=== PATIENT | female | born 1965 | race Caucasian/White ===

== ENCOUNTER 2020-03-24 11:02 | Emergency (ER) | payer MEDICAID, SELFPAY ==
[2020-03-24] VITALS (7 sets, daily range): BP systolic 98–167; BP diastolic 74–109; PULSE 70–99; RESP 12–22; TEMP 36.9; O2SAT 97–100
--- NOTE | ~2020-03-24 | CT_ITS ---
EXAMINATION: CT abdomen pelvis w con EXAM DATE: 03/24/2020 14:46 INDICATION: Epigastric abdominal pain radiating to back. TECHNIQUE: Spiral CT of the abdomen and pelvis was performed following intravenous injection of 100 m L Omnipaque 350. Axial, coronal and sagittal images were reviewed. The dose-length product (DLP) fo r this examination was 251.72 mGy-cm. The exposure was tailored according to patient size (auto mA e xposure control), and iterative reconstruction (ASIR) was used as additional dose reduction technique . There is no prior study for comparison. FINDINGS: The liver, spleen, adrenal glands and pancreas are unremarkable. Gallbladder is unremarkab le. No biliary obstruction. Portal and splenic veins are patent. There are lobular renal contours b ilaterally. Kidneys enhance symmetrically. There is no hydronephrosis. The uterus is unremarkable. Right ovary has a dominant follicle. The bladder is unremarkable. There is no retroperitoneal or p elvic lymphadenopathy. The appendix is normal. There are surgical changes from intact gastric bypass surgery. Short segment small bowel dilation at a small bowel anastomosis site. No small bowel obstruction. There is expecte d amount of colonic stool. No free intraperitoneal gas. The heart is normal in size. There are n o pericardial or pleural effusions. The lung bases are unremarkable. Moderate lower lumbar disc dis ease. IMPRESSION: 1. No acute intra-abdominal findings. 2. Gastric bypass with short segment small bowel dilation at anastomosis site. No obstruction. Reviewed, dictated and finalized at location A. DESK ANALYST
--- NOTE | ~2020-03-24 | XR_ITS ---
EXAMINATION: XR chest 2V EXAM DATE: 03/24/2020 11:55 INDICATION: Epigastric pain and shortness of breath. TECHNIQUE: Frontal and lateral projections of the chest obtained and reviewed. There is no prior fish dy for comparison. FINDINGS: The lungs are clear. There are no pleural effusions. The cardiomediastinal silhouette is within normal limits. There is no pneumothorax suspected. The bones and soft tissues are unremarkab le. IMPRESSION: Normal chest x-ray exam. Reviewed, dictated and finalized at location A. ET MAKER IMPRESSION: Normal chest x-ray exam.
--- NOTE | 2020-03-24 11:18 | ECG_ITS ---
Measurements Intervals [place] Rate: 83 P: 58 MO: 154 QRS: 42 QRSD: 89 T: 48 QT: 348 QTc: 411 Interpretive Statements SINUS RHYTHM NORMAL ECG Electronically Signed On 03-24-2020 11:33:46 DISTRIBUTION SUPERINTENDENT by Hiren Escalante D.O.
[2020-03-24 11:35] LABS: Basophils Percent Auto 0.3 % (0.2-1.2); Eosinophils Percent Auto 0.5 % (0-4.4); Hematocrit 36.9 % (37.0-47.0); Hemoglobin 12.5 g/dL (12.0-15.0); Immature Granulocyte Absolute 0.02 K/mm3 (0.00-0.031); Immature Granulocyte Percent A 0.3 % (0-0.5); Lymphocytes Percent Auto 25.7 % (18.3-44.2); Mean Corpuscular HGB Conc 33.9 g/dl (32-36); Mean Corpuscular Hemoglobin 28.9 pg (26-34); Mean Corpuscular Volume 85.2 fl (80-100); Mean Platelet Volume 10.8 fl (7.4-10.4); Monocytes Absolute Auto 0.5 K/mm3 (0.1-0.6); Monocytes Percent Auto 7.2 % (2.6-8.5); Neutrophils Absolute Auto 4.9 K/mm3 (1.3-6.7); Platelet Count Result 190 k/mm3 (150-375); Red Blood Count 4.33 M/mm3 (4.2-5.4); Red Cell Distribution Width 13.5 % (11.5-14.5); White Blood Count 7.4 K/mm3 (4.5-10.0)
--- NOTE | 2020-03-24 11:35 | ED.CHESTPAIN ---
HPI - Chest Pain General Chief Complaint: Chest Pain Stated Complaint: Chest Pain Time Seen by Provider: 03/24/20 11:16 Source: RN notes reviewed History of Present Illness HPI narrative: Patient presents emergency department from home for chest pain. Patient states that since yesterday she has had pain in midsternal chest and upper abdomen that radiates through to her back at times to her arm. States the pain has been constant but worsens at times she does note mild dysuria she had shortness of breath she has any fevers or chills nausea vomiting diarrhea or any other symptoms. Patient does states she has a history of anxiety currently does not have her anxiety medication she is currently visiting from [place]. Patient states that she is concerned about Covid she has had recent exposure Related Data Home Medications Medication Instructions Recorded Confirmed B Complex-Iron 03/24/20 divalproex [Depakote] PO 03/24/20 fluoxetine mg 03/24/20 hydroxyzine HCl 03/24/20 lisinopril 03/24/20 03/24/20 Allergies Allergy/AdvReac Type Severity Reaction Status Date / Time levetiracetam [From [facility]] AdvReac Unconscious Verified 03/24/20 11:19 Review of Systems Review of Systems: Narrative: Gen.: Denies fevers or chills ENT: Denies congestion Respiratory: Denies shortness of breath or cough CV: See HPI GI: Reports epigastric pain denies nausea vomiting or diarrhea denies burning, urgency, frequency or hematuria Musculoskeletal: Denies back pain or muscle pain Neuro: Denies numbness, tingling, weakness or focal weakness Skin: Denies rash Except as documented, all other systems reviewed and negative [facility] Past Medical History Medical History (Updated 03/24/20 @ 16:16 by Brandt Esposito DO) Anxiety Hypertension Stage III chronic kidney disease Social History Social History (Updated 03/24/20 @ 16:11 by Brandt Esposito DO) Smoking status: Never smoker Exam Narrative: Exam Narrative: APPEARANCE: No acute distress, nontoxic, resting in bed EYES: EOMI HEENT: Normocephalic, atraumatic, OMM RESPIRATORY: No respiratory distress Clear to auscultation bilaterally with no rhonchi wheezing or rales. CARDIOVASCULAR: Regular rate and rhythm without murmurs rubs or gallops. Chest: Tender palpation over the lower midsternal chest wall no overlying swelling or ecchymosis ABDOMINAL: Soft, nondistended, tender palpation epigastric region no tenderness right upper quadrant, left upper quadrant right lower quadrant left lower quadrant no rebound or guarding MUSCULOSKELETAl: Moves all extremities. No clubbing, cyanosis or edema. NEURO: Awake and alert. Following commands, speech normal, no focal deficits SKIN:: Warm, dry. No rashes lesions or abrasions PSYCHIATRIC: Normal affect/mood, Course Course Emergency Course: Patient has minimal change in pain with GI cocktail chest wall pain we will give single dose of Toradol Discussed with patient states her normal creatinine is approximate 1.6 to 1.8 she states she follows with nephrology in [place] but is here visiting Patient does note improvement of pain with Toradol secondary to chronic kidney disease will not prescribe long-term dosing of NSAID Discussed with patient results of workup and diagnosis. Discussed need for follow-up with primary care, proper use of medication, and reasons to return to the emergency department. Patient understands and agrees to current treatment plan patient is requesting anxiety medication states that she cannot take Xanax and states she has taken Valium with good results in past Vital Signs Vital signs: Vital Signs Temperature 98.5 F 03/24/20 11:09 Pulse Rate 92 03/24/20 11:09 Respiratory Rate 18 03/24/20 11:09 Blood Pressure 149/109 H 03/24/20 11:09 Pulse Oximetry 100 03/24/20 11:09 Temperature 98.5 F 03/24/20 11:09 Pulse Rate 99 03/24/20 14:17 Respiratory Rate 22 H 03/24/20 14:17 Blood Pressure 98/74 L
[2020-03-24 11:47] LABS: Prothrombin Time 13.6 Seconds (11.1-14.7)
[2020-03-24 11:48] LABS: Anion Gap 7 mmol/L (8-16); Blood Urea Nitrogen 28 mg/dL (7-17); Calcium 8.8 mg/dL (8.4-10.2); Carbon Dioxide 25 mmol/L (22-30); Chloride 102 mmol/L (98-107); Estimated CRCL calculation 26 ml/min; Estimated Glomerular Filt Rate 30; Glucose 105 mg/dL (65-105); Partial Thromboplastin Time 33.3 SECONDS (22.3-36.8); Potassium 4.4 mmol/L (3.4-5.0); Sodium 134 mmol/L (137-145)
[2020-03-24 11:53] LABS: D Dimer 0.27 ug/mL (<0.48)
[2020-03-24 11:59] LABS: Alanine Aminotransferase 10 U/L (4-35); Albumin Level 3.8 g/dL (3.5-5.1); Alkaline Phosphatase 51 U/L (38-126); Aspartate Amino Transferase 19 U/L (14-36); Bilirubin,Total 0.3 mg/dL (0.2-1.3); Lipase 78 U/L (23-300)
[2020-03-24 12:00] LABS: Troponin I < 0.012 ng/mL (0.000-0.034)
[2020-03-24] MEDS: ASPIRIN 81 MG CHEWABLE TABLET 324 MG PO (12:12)
[2020-03-24] MEDS: LORazepam INJ (*CRX) 2 MG/ML VIAL 0.5 MG IV PUSH (12:57)
[2020-03-24] MEDS: KETOROLAC 30 MG/ML VIAL (*BKC) IV PUSH (13:35)
[2020-03-24] MEDS: FAMOTIDINE 20 MG/2 ML VIAL IV PUSH (13:35)
[2020-03-24 14:35] LABS: Troponin I < 0.012 ng/mL (0.000-0.034)
[2020-03-24 23:27] LABS: SARS-CoV-2 RNA PCR Negative
== END 2020-03-24 16:50 | disposition home or self-care (01) ==
PROVIDERS: Emergency Provider Emergency Medicine
DX: R07.9 Chest pain, unspecified (principal); F41.9 Anxiety disorder, unspecified; Z20.828 Contact with and (suspected) exposure to other viral communicable diseases; I12.9 Hypertensive chronic kidney disease with stage 1 through stage 4 chronic kidney disease, or unspecified chronic kidney disease; N18.30 Chronic kidney disease, stage 3 unspecified
CPT/HCPCS: 36415; 71046; 74177; 80048; 80076; 83690; 84484; 85025; 85380; 85610; 85730; 87635; 93005; 96374; 96375; 99284; A9270; C9803; J1885; J2060; Q9967; U0003

== ENCOUNTER 2020-05-31 15:16 | Observation (INO) | payer MEDICAID, SELFPAY ==
--- NOTE | ~2020-05-31 | US_ITS ---
EXAMINATION: US abdomen limited DATE: 06/01/2020 09:05 INDICATION: Epigastric abdominal pain. TECHNIQUE: Multiple grayscale and Doppler ultrasound images of the abdomen were obtained. COMPARISON: CT abdomen and pelvis 05/31/2020 FINDINGS: The visualized portions of the head, body, and tail of the pancreas are normal. The liver i s normal without focal lesion. There is normal flow in main portal vein. The gallbladder is normal in size. No gallstones or gallbladder wall thickening. There was no sonographic Ramos sign. The common duct is normal and measures 2 mm. IMPRESSION: 1. Normal right upper quadrant ultrasound. Reviewed, dictated and finalized at location A. INSTALLER
--- NOTE | ~2020-05-31 | XR_ITS ---
EXAMINATION: XR chest 1V DATE: 05/31/2020 17:40 INDICATION: Epigastric pain. Right-sided chest pain. TECHNIQUE: PA view of the chest was obtained. COMPARISON: Chest radiograph dated 03/24/2020 FINDINGS: The lungs remain clear with no focal airspace opacities, pulmonary edema, pleural effusion or pneumot horax. The cardiomediastinal silhouette is normal. Postoperative changes in the left upper quadrant. IMPRESSION: 1. No acute cardiopulmonary disease. Reviewed, dictated and finalized at location A. ATION OPERATOR
--- NOTE | ~2020-05-31 | CT_ITS ---
EXAMINATION: CT abdomen pelvis wo con DATE: 05/31/2020 17:32 INDICATION: Epigastric abdominal pain. TECHNIQUE: Computed tomography (CT) of the abdomen and pelvis was performed without intravenous contr ast. Automated exposure control and iterative reconstruction technique were employed. The dose-length product was 257.65 mGy-cm. COMPARISON: 08/31/2019 FINDINGS: Lung bases are clear. Heart size is normal. No pericardial or pleural effusion. Postoperative changes in the left upper quadrant of likely gastric bypass procedure. Liver, gallbladder, spleen, pancreas and bilateral adrenal glands are normal. Again seen is likely mild bilateral renal cortical scarring with lobular contour to both kidneys. No urolithiasis or hydronephrosis. Bladder is normal. Coarse ca lcific lesion along the anterior wall of uterus likely related to a degenerated fibroid. Bilateral ap proximately 2 cm ovarian cysts. Normal appendix. No bowel obstruction. No free intraperitoneal gas or fluid. No pathologically enlarged abdominal or pelvic lymphadenopathy. Severe lower lumbar spondylos is. IMPRESSION: 1. No acute intra-abdominal/pelvic process. Reviewed, dictated and finalized at location A. ER SCREEN INSTALLER
[2020-05-31 15:32] VITALS: BP 117/67; PULSE 69; RESP 16; TEMP 36.2; O2SAT 100
[2020-05-31 15:56] LABS: Basophils Percent Auto 0.3 % (0.2-1.2); Eosinophils Absolute Auto 0.2 K/mm3 (0-0.3); Hematocrit 35.4 % (37.0-47.0); Hemoglobin 11.7 g/dL (12.0-15.0); Immature Granulocyte Absolute 0.03 K/mm3 (0.00-0.031); Immature Granulocyte Percent A 0.3 % (0-0.5); Lymphocytes Absolute Auto 2.21 K/mm3 (0.9-3.2); Lymphocytes Percent Auto 22.2 % (18.3-44.2); Mean Corpuscular HGB Conc 33.1 g/dl (32-36); Mean Corpuscular Volume 90.8 fl (80-100); Mean Platelet Volume 11.3 fl (7.4-10.4); Monocytes Absolute Auto 0.7 K/mm3 (0.1-0.6); Monocytes Percent Auto 7.3 % (2.6-8.5); Neutrophils Absolute Auto 6.7 K/mm3 (1.3-6.7); Neutrophils Percent Auto 67.9 % (45.5-73.1); Platelet Count Result 209 k/mm3 (150-375); Red Cell Distribution Width 13.3 % (11.5-14.5); White Blood Count 9.9 K/mm3 (4.5-10.0)
[2020-05-31 15:59] LABS: Add Urine Microscopic? NO; Appearance Urine Clear (Clear); Bilirubin Urine Negative (Negative); Blood Urine Negative (Negative); Color Urine Colorless (Yellow); Glucose Urine UA Negative (Negative); Ketones Urine Negative (Negative); Leukocyte Esterase Ur Negative LEU/UL (Negative); Nitrate Urine Negative (Negative); Protein Urine Negative (Negative); Specific Grav Ur 1.005 (1.001-1.035); Urobilinogen Urine Negative mg/dL (<2.0)
[2020-05-31 16:10] LABS: Alanine Aminotransferase 19 U/L (4-35); Albumin Level 3.9 g/dL (3.5-5.1); Alkaline Phosphatase 52 U/L (38-126); Anion Gap 7 mmol/L (8-16); Aspartate Amino Transferase 24 U/L (14-36); Bilirubin,Total 0.1 mg/dL (0.2-1.3); Blood Urea Nitrogen 40 mg/dL (7-17); Calcium 8.8 mg/dL (8.4-10.2); Carbon Dioxide 24 mmol/L (22-30); Chloride 105 mmol/L (98-107); Estimated CRCL calculation 29 ml/min; Estimated Glomerular Filt Rate 32; Glucose 115 mg/dL (65-105); Lipase 1199 U/L (23-300); Potassium 4.5 mmol/L (3.4-5.0); Sodium 136 mmol/L (137-145)
--- NOTE | 2020-05-31 16:47 | ECG_ITS ---
Measurements Intervals [place] Rate: 51 P: 42 MD: 152 QRS: 42 QRSD: 98 T: 48 QT: 425 QTc: 393 Interpretive Statements SINUS BRADYCARDIA MINIMAL Q WAVES- HIGH LATERAL LEADS BORDERLINE ECG Electronically Signed On 06-01-2020 6:55:21 FARM OR RANCH ANIMAL CARETAKER by Hiren Escalante D.O.
--- NOTE | 2020-05-31 16:47 | ED.ABDPAIN ---
HPI - Abdominal Pain General Chief Complaint: Abdominal Pain Stated Complaint: abd pain, n/v Time Seen by Provider: 05/31/20 16:18 Source: patient Mode of arrival: ambulatory Limitations: no limitations History of Present Illness HPI narrative: This patient is a 54 year old female with history of chronic kidney disease, hypertension who presents for evaluation of epigastric abdominal pain. She states she has been having epigastric abdominal pain intermittently for 6 months. She states her pain is not daily. This episode of pain started yesterday. She reports she became upset and she developed epigastric pain. This pain radiates to her back and she also reports midsternal chest pressure. She reports she had an episode of vomiting. Her pain has remained constant since yesterday. She denies diarrhea and denies changes in her stool. She has not seen a GI doctor, but her primary care physician has checked her for H. Pylori She is concerned she may have covid as well. She reports a cough for 10 days. MD elicited complaint: abdominal pain Onset (ago): month(s) (6) Location: epigastric Severity: moderate Pain scale (0-10): 6 Quality: cramping Exacerbating factors: eating Associated symptoms: nausea and vomiting Related Data Home Medications Medication Instructions Recorded Confirmed B Complex-Iron 03/24/20 divalproex [Depakote] PO 03/24/20 fluoxetine mg 03/24/20 hydroxyzine HCl 03/24/20 lisinopril 03/24/20 03/24/20 Allergies Allergy/AdvReac Type Severity Reaction Status Date / Time levetiracetam [From [facility]] AdvReac Unconscious Verified 03/24/20 11:19 Review of Systems Review of Systems: All systems reviewed & are unremarkable except as noted in HPI and below Constitutional: Constitutional: Denies chills and Reports fever(s) (1 week ago) ENT: Reports sore throat Cardiovascular: Cardiovascular: Reports chest pain Respiratory: Respiratory: Reports cough Gastrointestinal: Gastrointestinal: Reports abdominal pain, Denies diarrhea, Reports nausea and Reports vomiting Musculoskeletal: Musculoskeletal: Reports back pain PMFSH Past Medical History Medical History Anxiety Hypertension Stage III chronic kidney disease Surgical History Surgical History (Updated 05/31/20 @ 16:48 by Laureen Andrews MD) H/O gastric bypass Social History Social History (Updated 05/31/20 @ 16:49 by Laureen Andrews MD) Smoking status: Never smoker Alcohol use details: rarely, last drink 3 years ago Substance use: never Exam Const: General: no acute distress and alert Orientation/consciousness: patient oriented x3 Eyes: EOM: EOMs intact bilaterally Resp: Effort & Inspection: normal respiratory effort and no retractions Auscultation: clear to auscultation bilaterally Cardio: Rate: regular rate Rhythm: regular rhythm Heart sounds: no murmurs GI: GI Palp: Yes Soft to palpation, Yes Tenderness to palpation present (GI) (epigastric) and No Guarding due to palpation present (GI) Auscultation: normal bowel sounds Skin: General skin exam: normal color Rashes: no rashes Neuro: General: patient oriented x3, moves all extremities and CN's II-XI intact bilaterally Course Reevaluation(s) Reevaluation #1: I discussed with patient CT findings and labs. She reports she still has some pain so will admit for evaluation. She does have worsening BUN compared to her baseline Date: 05/31/20 Time: 19:15 Consultations Consultation #1: I Discussed case with Kay Mendez who accepts patient to hospitalist service. Date: 05/31/20 Time: 19:15 Vital Signs Vital signs: Vital Signs Temperature 97.2 F L 05/31/20 15:32 Pulse Rate 69 05/31/20 15:32 Respiratory Rate 16 05/31/20 15:32 Blood Pressure 117/67 05/31/20 15:32 Pulse Oximetry 100 05/31/20 15:32 Temperature 97.2 F L 05/31/20 15:32 Pulse Rate 74 05/31/20 18:35
--- NOTE | 2020-05-31 17:33 | PC.NURSE ---
Called lab to add on trop
[2020-05-31] MEDS: LACTATED RINGERS 1,000 ML 999 ML IV CONT ×2 (17:47)
[2020-05-31] MEDS: ONDANSETRON INJ 4 MG/2 ML VIAL IV PUSH (17:47)
[2020-05-31 17:56] LABS: Troponin I < 0.012 ng/mL (0.000-0.034)
[2020-05-31 18:35] VITALS: BP 152/84; PULSE 74; RESP 14; O2SAT 98
[2020-05-31 19:30] LABS: Troponin I < 0.012 ng/mL (0.000-0.034)
[2020-05-31] MEDS: MORPHINE SULFATE (*CRX) 2 MG/ML INJ IV PUSH (20:41)
[2020-05-31 20:56] VITALS: BP 117/83; PULSE 67; RESP 16; O2SAT 100
[2020-05-31] MEDS: SODIUM CHLORIDE 0.9% IV 1,000 ML 125 ML IV CONT (21:52)
--- NOTE | 2020-05-31 22:05 | ADMGEN ---
This patient, Shanda Shearer, was admitted to Medical Room 348-01. Patient/family oriented to hospital policies and general routines including ID bracelet, bed and alarms, visiting hours, pain management, procedures, bathroom and other care routines, personal items, smoking policy, room service/diet, and visiting hours. Information on how to activate the Rapid Response Team has been discussed. Patient/Family are encouraged to report perceived risks to care and to ask questions if they do not understand what they are told or what they should do.
[2020-05-31 22:12] VITALS: BP 134/81; PULSE 53; RESP 16; TEMP 36.4; O2SAT 100; BMI 24.9
--- NOTE | 2020-06-01 04:10 | PC.NURSE ---
Pt will be transferred to 3 Med/Surg as PUI due to recent exposure and symptomatic cough.
[2020-06-01 04:30] VITALS: BP 122/81; PULSE 51; RESP 16; TEMP 36.3; O2SAT 99
--- NOTE | 2020-06-01 04:38 | PC.NURSE ---
Transfer received from [facility] Medical room [address] [place] [address] Surgical room 327 in stable condition.
--- NOTE | 2020-06-01 04:50 | PM.IMHP ---
H&P: HPI History of Present Illness Date/Time: 06/01/20 04:50 Chief Complaint: Upper abdominal pain Narrative: Shanda Shearer is a 54 year old female of anxiety, seizures chronic kidney disease and prior gastric bypass procedure who presented to the ER with epigastric abdominal pain. The patient reports that she has been having intermittent epigastric abdominal pain on and off for the last 6 months. She went to her primary care physician and had testing performed for H pylori. Her most recent episode of pain started on the . She started having the pain when she became upset after her son's car would not start. Her son was supposed to take her to work and when the car went start she began to panic. She reported that the pain was in the epigastric region and radiated to her back. She also reported some midsternal chest discomfort and had 1 episode of vomiting. The pain is remained constant since the . Pain is 7/10 in intensity. She reports that the pain is achy in nature. She is not will noticed worsening pain with eating. She has had decreased appetite. She reports the pain is worse with deep breathing. Cardiac enzymes in the ER that were negative. She reports that someone at work was positive for COVID 10 days ago. Around that same time the patient herself spiked a fever of 100.7 and was sent home. The patient states that she was not tested for COVID at that time. Since she spiked the fever she has developed a fever productive of small amount of clear phlegm. She has not had any recurrent fever. She denies any shortness of breath. Review of Systems Review of Systems: Narrative: 12 systems were reviewed with pertinent positives and negatives per HPI. Except as documented in the HPI, all other systems were reviewed and are negative. [facility] Past Medical History Medical History (Updated 06/01/20 @ 08:13 by Lizeth Ellis DO) Anxiety GERD (gastroesophageal reflux disease) Hypertension Seizure disorder Stage III chronic kidney disease Surgical History Surgical History (Updated 06/01/20 @ 04:54 by Lizeth Ellis DO) H/O gastric bypass 1998 History of History of tubal ligation Family History Family History Mother Pancreatitis, recurrent, Onset Age: 40 eventually required enzyme support w/ meals Hypertension Alzheimer's disease with early onset, Onset Age: 48 Father Hypertension Chronic kidney disease (CKD) Social History Social History (Updated 06/01/20 @ 08:07 by Lizeth Ellis DO) Social History: She reports that her and her son are currently living in a hotel. She reports that she recently moved back to the area February. 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 After mother went on hospice she had a ?nervous breakdown and change careers. She is currently working at a [employer] Smoking status: Never smoker Second hand tobacco smoke exposure: Yes Alcohol intake: never Drinks per week: 0 Alcohol use details: rarely, last drink 3 years ago Substance use: current Substance use type: marijuana Other substance usage details: marijuana use for joint pain Last use: 05/30/2020 Gender identity (if verbalized by the patient): Female Spiritual care concerns: No Meds Home Medications and Allergies Home Medications Medication Instructions Recorded Confirmed Type diazepam [Valium] 2 mg PO BID PRN #4 tablet 03/24/20 05/31/20 Rx divalproex [Depakote] 500 mg PO BID 03/24/20 05/31/20 History fluoxetine 20 mg PO DAILY 03/24/20 05/31/20 History lisinopril 10 mg PO DAILY 03/24/20 06/01/20 History Allergies Allergy/AdvReac Type Severity Reaction Status Date / Time levetiracetam [From [facility]] AdvReac Confusion Verified 06/01/20 03:37 Vital Signs Vital Signs - 24 hr 05/31/20 15:32 05/31/20 18:35 05/31/20 20:56 Temperature 97.2 F L Pulse Ra
[2020-06-01] MEDS: SODIUM CHLORIDE 0.9% IV 1,000 ML 125 ML IV CONT ×3 (06:07→22:31)
[2020-06-01] MEDS: LORazepam INJ (*CRX) 2 MG/ML VIAL 0.5 MG IV PUSH (06:08)
[2020-06-01 07:33] LABS: Basophils Percent Auto 0.6 % (0.2-1.2); Eosinophils Absolute Auto 0.2 K/mm3 (0-0.3); Eosinophils Percent Auto 3.3 % (0-4.4); Hematocrit 32.8 % (37.0-47.0); Hemoglobin 10.5 g/dL (12.0-15.0); Immature Granulocyte Absolute 0.02 K/mm3 (0.00-0.031); Immature Granulocyte Percent A 0.3 % (0-0.5); Lymphocytes Percent Auto 37.9 % (18.3-44.2); Mean Corpuscular Hemoglobin 28.9 pg (26-34); Mean Corpuscular Volume 90.4 fl (80-100); Mean Platelet Volume 11.8 fl (7.4-10.4); Monocytes Absolute Auto 0.6 K/mm3 (0.1-0.6); Monocytes Percent Auto 8.9 % (2.6-8.5); Neutrophils Absolute Auto 3.2 K/mm3 (1.3-6.7); Platelet Count Result 178 k/mm3 (150-375); Red Blood Count 3.63 M/mm3 (4.2-5.4); Red Cell Distribution Width 13.2 % (11.5-14.5); White Blood Count 6.6 K/mm3 (4.5-10.0)
[2020-06-01 07:40] LABS: Alanine Aminotransferase 14 U/L (4-35); Alkaline Phosphatase 44 U/L (38-126); Anion Gap 4 mmol/L (8-16); Aspartate Amino Transferase 17 U/L (14-36); Bilirubin,Total 0.3 mg/dL (0.2-1.3); Blood Urea Nitrogen 30 mg/dL (7-17); Calcium 8.4 mg/dL (8.4-10.2); Carbon Dioxide 24 mmol/L (22-30); Chloride 112 mmol/L (98-107); Estimated CRCL calculation 28 ml/min; Estimated Glomerular Filt Rate 32; Glucose 87 mg/dL (65-105); Lipase 161 U/L (23-300); Potassium 4.6 mmol/L (3.4-5.0); Sodium 140 mmol/L (137-145)
[2020-06-01 08:00] VITALS: BP 149/77; PULSE 49; RESP 18; TEMP 36.7; O2SAT 99
[2020-06-01 08:18] LABS: Immature Reticulocyte Fraction 15.4 % (3.0-15.9); Reticulocyte Hemoglobin Conten 33.7 pg (28.2-35.7); Reticulocyte Percent 1.64 % (0.7-4.3); Reticulocytes Absolute 0.06 B/L (32.2-175.7)
[2020-06-01] MEDS: MORPHINE SULFATE (*CRX) 2 MG/ML INJ IV PUSH ×2 (08:28→16:17)
[2020-06-01] MEDS: ENOXAPARIN 30 MG/0.3 ML SYRINGE SUB-Q (08:28)
[2020-06-01] MEDS: PANTOPRAZOLE SODIUM IV 40 MG VIAL IV PUSH ×2 (08:28→20:36)
[2020-06-01 09:18] VITALS: O2SAT 95
[2020-06-01 09:53] LABS: D Dimer 0.27 ug/mL (<0.48)
[2020-06-01 09:55] LABS: Transferrin 246 mg/dL (206-381)
[2020-06-01] MEDS: diazePAM (*CRX) 2 MG TABLET PO ×2 (09:59→22:28)
[2020-06-01 10:18] LABS: Iron 108 ug/dL (37-170)
[2020-06-01 10:29] LABS: Percent Iron Saturation 33 % (20-50)
[2020-06-01 10:52] LABS: Folic Acid 19.5 ng/mL (2.76->20)
[2020-06-01] MEDS: FLUoxetine HCL 20 MG CAPSULE PO (11:20)
[2020-06-01 12:00] VITALS: BP 128/78; PULSE 100; RESP 18; TEMP 36.5; O2SAT 96
--- NOTE | 2020-06-01 12:23 | PM.IMPN ---
Progress Note: A&P Assessment and Plan (1) Abdominal pain: Qualifiers: Abdominal location: epigastric Qualified Code(s): R10.13 - Epigastric pain Code(s): R10.9 - Unspecified abdominal pain Status: Acute Assessment and Plan: Intermittent abdominal pain x 6 months now persistent for 2 days, improved today after bowel rest, IV hydration and protonix. CT abdomen/pelvis, RUQ abdominal ultrasound show no acute intra-abdominal or pelvic abnormalities. Etiology unclear at this time. Notes her mother dealt with recurrent pancreatitis. Cannot rule out an early developing pancreatitis not shown on CT yet - lipase was elevated but now improved/resolved to normal. Could also be related to gastritis/PUD? Will treat with BID PPI and encourage GI follow up outpatient. Advance diet as tolerated and monitor closely. Add oral pain medication to hopefully space out need for IV morphine. Continue IV hydration. Anticipate possible discharge tomorrow. 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 Cr elevated but stable, will monitor renal function and urine output. (3) Seizure disorder: Code(s): G40.909 - Epilepsy, unspecified, not intractable, without status epilepticus Status: Chronic Assessment and Plan: Continue depakote. Last seizure around 2016. (4) Person under investigation for COVID-19: Code(s): Z20.822 - Contact with and (suspected) exposure to COVID-19 Status: Acute Assessment and Plan: Continue droplet isolation with SARS-Cov-2 pending. She was exposed to COVID positive coworker last week and has had a dry cough. No respiratory distress, tolerating room air. (5) Anemia: Qualifiers: Anemia type: unspecified type Qualified Code(s): D64.9 - Anemia, unspecified Code(s): D64.9 - Anemia, unspecified Status: Acute Assessment and Plan: Drop in H&H may in part be dilutional from IV hydration. No evidence of acute bleeding. Monitor CBC. Subjective Date/time seen: 06/01/20 12:00 Interval history: Ms. Shearer is a 54yo F admitted for abdominal pain. She describes epigastric abdominal pain that has been intermittent for the last 6 months but her most recent episode has been constant epigastric pain since Tuesday 05/30. Overall she is feeling a bit improved from when she came in and thinks her pain is a little better. She reports one episode of emesis 05/30 and none since, denies nausea. She denies chest pain or shortness of breath. She has had a dry cough for over 1 week and was exposed to COVID positive person at work. She admits to feeling anxious being in the hospital and notes being anxious in general. Reports dark stools at times, denies red blood in BM or emesis. Review of Systems Review of Systems: All systems reviewed & are unremarkable except as noted in HPI and below Exam Narrative: Exam Narrative: General: Female resting comfortably sitting up in bed in no acute distress. Anxious but cooperative and pleasant. HEENT: Normocephalic, EOMI, oral mucosa moist. Cardiovascular: Rate and rhythm are regular. No notable murmur, rub, or gallop. Respiratory: Lungs clear to auscultation bilaterally. Respirations even and non-labored. Abdomen: Soft, mild epigastric tenderness to palpati
[2020-06-01] MEDS: HYDROcodone/acetaminophen (*CRX) 5-325 MG TABLET 1 TAB PO ×2 (12:50→20:34)
[2020-06-01] MEDS: DIVALPROEX SODIUM DR 250 MG TABEC 500 MG PO ×2 (12:52→20:36)
[2020-06-01 16:00] VITALS: BP 144/75; PULSE 60; RESP 18; TEMP 36.7; O2SAT 100
[2020-06-01] MEDS: ONDANSETRON INJ 4 MG/2 ML VIAL IV PUSH (17:32)
[2020-06-01 20:00] VITALS: BP 161/84; PULSE 48; RESP 20; TEMP 36.4; O2SAT 100
[2020-06-02] VITALS: BP 127/71; PULSE 57; RESP 20; TEMP 36.5; O2SAT 99
[2020-06-02] MEDS: MORPHINE SULFATE (*CRX) 2 MG/ML INJ IV PUSH (01:10)
[2020-06-02 04:00] VITALS: BP 147/90; PULSE 63; RESP 20; TEMP 36.5; O2SAT 97
[2020-06-02 06:24] LABS: Basophils Percent Auto 0.5 % (0.2-1.2); Eosinophils Absolute Auto 0.2 K/mm3 (0-0.3); Eosinophils Percent Auto 2.8 % (0-4.4); Hematocrit 33.9 % (37.0-47.0); Hemoglobin 10.8 g/dL (12.0-15.0); Immature Granulocyte Absolute 0.01 K/mm3 (0.00-0.031); Immature Granulocyte Percent A 0.2 % (0-0.5); Lymphocytes Absolute Auto 2.66 K/mm3 (0.9-3.2); Lymphocytes Percent Auto 44.6 % (18.3-44.2); Mean Corpuscular HGB Conc 31.9 g/dl (32-36); Mean Corpuscular Hemoglobin 29.7 pg (26-34); Mean Corpuscular Volume 93.1 fl (80-100); Mean Platelet Volume 11.6 fl (7.4-10.4); Monocytes Absolute Auto 0.5 K/mm3 (0.1-0.6); Neutrophils Absolute Auto 2.6 K/mm3 (1.3-6.7); Neutrophils Percent Auto 42.9 % (45.5-73.1); Platelet Count Result 175 k/mm3 (150-375); Red Blood Count 3.64 M/mm3 (4.2-5.4); Red Cell Distribution Width 13.2 % (11.5-14.5)
[2020-06-02 06:43] LABS: Anion Gap 3 mmol/L (8-16); Blood Urea Nitrogen 21 mg/dL (7-17); Calcium 8.4 mg/dL (8.4-10.2); Carbon Dioxide 27 mmol/L (22-30); Chloride 110 mmol/L (98-107); Estimated CRCL calculation 28 ml/min; Estimated Glomerular Filt Rate 32; Glucose 82 mg/dL (65-105); Magnesium 1.6 mg/dL (1.6-2.3); Potassium 4.9 mmol/L (3.4-5.0); Sodium 140 mmol/L (137-145)
[2020-06-02] MEDS: SODIUM CHLORIDE 0.9% IV 1,000 ML 125 ML IV CONT ×2 (06:47→12:34)
[2020-06-02 08:00] VITALS: BP 157/91; PULSE 46; RESP 16; TEMP 36.8; O2SAT 98
[2020-06-02] MEDS: FLUoxetine HCL 20 MG CAPSULE PO (08:02)
[2020-06-02] MEDS: DIVALPROEX SODIUM DR 250 MG TABEC 500 MG PO (08:02)
[2020-06-02] MEDS: ENOXAPARIN 30 MG/0.3 ML SYRINGE SUB-Q (08:02)
[2020-06-02] MEDS: PANTOPRAZOLE SODIUM IV 40 MG VIAL IV PUSH (08:02)
[2020-06-02] MEDS: HYDROcodone/acetaminophen (*CRX) 5-325 MG TABLET 1 TAB PO ×2 (08:03→15:14)
[2020-06-02] MEDS: lisinopriL 10 MG TABLET PO (10:18)
[2020-06-02] MEDS: MAGNESIUM SULF 1 GM/D5W 100 ML 1 GM/100 ML BAG IVPB (10:18)
[2020-06-02 12:00] VITALS: BP 153/86; PULSE 48; RESP 16; TEMP 36.7; O2SAT 98
[2020-06-02] MEDS: diazePAM (*CRX) 2 MG TABLET PO (12:45)
[2020-06-02 13:44] LABS: Magnesium 1.7 mg/dL (1.6-2.3)
--- NOTE | 2020-06-02 14:58 | PM.DS ---
DS: Admitting Diagnosis Admitting Diagnosis Admitting Diagnosis: Abdominal pain DS: Discharge Diagnosis Discharge Diagnosis (1) Abdominal pain: Qualifiers: Abdominal location: epigastric Qualified Code(s): R10.13 - Epigastric pain Code(s): R10.9 - Unspecified abdominal pain Status: Acute Assessment and Plan: Date of Admission 05/31/20 Date of Discharge/DOS 06/02/20 Ms. Shearer is a 54yo F with history of anxiety, seizures, chronic kidney disease, and prior gastric bypass surgery who presented to the ED for evaluation of abdominal pain. She describes having intermittent epigastric abdominal pain on and off for the last 6 months. Primary care provider had performed H pylori testing which was negative. Her pain returned over the weekend and was moderate and persistent. CT abdomen/pelvis as well as right upper quadrant abdominal ultrasound showed no acute intra-abdominal or pelvic abnormalities. Lipase was mildly elevated and resolved the following day with IV hydration and bowel rest. She was also started on Protonix. Etiology of her pain is unclear at this time, however this may be related to an early pancreatitis not detected on imaging vs. gastritis/peptic ulcer disease. She describes her symptoms are worse when she becomes stressed and anxious. Her diet was advanced and she tolerated this well without increased pain, nausea, or vomiting. She is encouraged to establish care with gastroenterology for outpatient evaluation by EGD and continue PPI. She is hemodynamically stable on 06/02/2020 with instructions to establish care with PCP and establish care with GI. Intermittent abdominal pain x 6 months now persistent for 2 days, improved today after bowel rest, IV hydration and protonix. CT abdomen/pelvis, RUQ abdominal ultrasound show no acute intra-abdominal or pelvic abnormalities. Etiology unclear at this time. Notes her mother dealt with recurrent pancreatitis. Cannot rule out an early developing pancreatitis not shown on CT yet - lipase was elevated but now improved/resolved to normal. Could also be related to gastritis/PUD? Will treat with BID PPI and encourage GI follow up outpatient. 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 Cr elevated but stable, will monitor renal function and urine output. (3) Seizure disorder: Code(s): G40.909 - Epilepsy, unspecified, not intractable, without status epilepticus Status: Chronic Assessment and Plan: Continue depakote. Last seizure around 2016. (4) Person under investigation for COVID-19: Code(s): Z20.822 - Contact with and (suspected) exposure to COVID-19 Status: Acute Assessment and Plan: She was exposed to COVID positive coworker last week and has had a dry cough. COVID testing negative here by PCR. No respiratory distress, tolerating room air. (5) Anemia: Qualifiers: Anemia type: unspecified type Qualified Code(s): D64.9 - Anemia, unspecified Code(s): D64.9 - Anemia, unspecified Status: Acute Assessment and Plan: Drop in H&H may in part be dilutional from IV hydration. No evidence of acute bleeding. Hgb low but stable DS: Summary Hospital Course Hospital Course: See abo
[2020-06-02 16:00] VITALS: BP 127/84; PULSE 67; RESP 16; TEMP 36.7; O2SAT 99
[2020-06-02 18:18] LABS: SARS-CoV-2 RNA PCR Negative
== END 2020-06-02 19:00 | disposition home or self-care (01) ==
LOC: ANHED 16:32 → ANH3MED 20:15 → ANH3MEDSUR 06-01 04:36
PROVIDERS: Emergency Medicine; Internal Medicine; Physician Assistant; Admitting Provider Internal Medicine; Emergency Provider General Practice; Visit Provider Family Medicine
DX: R10.13 Epigastric pain (principal); I12.9 Hypertensive chronic kidney disease with stage 1 through stage 4 chronic kidney disease, or unspecified chronic kidney disease; N18.32 Chronic kidney disease, stage 3b; G40.909 Epilepsy, unspecified, not intractable, without status epilepticus; F41.9 Anxiety disorder, unspecified; Z20.822 Contact with and (suspected) exposure to COVID-19; D64.9 Anemia, unspecified; Z98.84 Bariatric surgery status
CPT/HCPCS: 36415; 71045; 74176; 76705; 80048; 80053; 81003; 81025; 82607; 82728; 82746; 83540; 83550; 83690; 83735; 84466; 84484; 85025; 85046; 85380; 93005; 96361; 96365; 96372; 96374; 96375; 96376; 99285; A9270; C9113; C9803; G0378; J0131; J1650; J2060; J2270; J2405; J3475; J7030; J7120; U0003; U0005

== ENCOUNTER 2020-07-30 20:32 | Emergency (ER) | payer MEDICAID, SELFPAY ==
--- NOTE | ~2020-07-30 | XR_ITS ---
EXAMINATION: XR chest 2V DATE: 07/30/2020 22:49 INDICATION: Cough and shortness of breath TECHNIQUE: PA and lateral views of the chest are obtained. COMPARISON: Comparison examinations are not currently retrievable on the PACS. FINDINGS: The lungs are free of acute opacities. There is no pleural effusion or pneumothorax. The ca rdiomediastinal silhouette is normal. There is mild thoracic spondylosis. IMPRESSION: 1. No acute cardiopulmonary abnormality. Reviewed, dictated and finalized at location A.
[2020-07-30 20:54] VITALS: BP 147/92; PULSE 62; RESP 18; TEMP 36.2; O2SAT 100
--- NOTE | 2020-07-30 22:42 | ED.URI ---
HPI - URI/Sore Throat General Chief Complaint: Upper Respiratory Infection Stated Complaint: cough, congestion, fever Time Seen by Provider: 07/30/20 22:40 Source: patient Mode of arrival: ambulatory Limitations: no limitations History of Present Illness HPI Narrative: Patient is a 55-year-old female complaining of cough, nasal congestion, sore throat, body aches, and fever that started 2 days ago. Denies any chest pain, shortness of breath, nausea, vomiting, diarrhea. Related Data Home Medications Medication Instructions Recorded Confirmed divalproex [Depakote] 500 mg PO BID 03/24/20 05/31/20 fluoxetine 20 mg PO DAILY 03/24/20 05/31/20 lisinopril 10 mg PO DAILY 03/24/20 06/01/20 Allergies Allergy/AdvReac Type Severity Reaction Status Date / Time levetiracetam [From [facility]] AdvReac Confusion Verified 06/01/20 03:37 Review of Systems Review of Systems: All systems reviewed & are unremarkable except as noted in HPI and below Constitutional: Constitutional: Denies chills, Denies excessive sweating, Denies fatigue, Denies headache(s), Denies lethargy, Denies malaise, Denies weakness and Denies weight loss Eyes: Eyes: Denies blurry vision, Denies change in vision and Denies loss of vision ENT: Denies dizziness, Denies ear discharge, Denies headache(s), Denies lip swelling, Denies epistaxis, Denies neck pain, Denies throat swelling and Denies tongue swelling Cardiovascular: Cardiovascular: Denies chest pain, Denies chest pain at rest, Denies chest pain with activity, Denies diaphoresis, Denies rapid heart rate, Denies edema, Denies irregular heart rhythm, Denies lightheadedness, Denies palpitations, Denies dyspnea and Denies dyspnea on exertion Respiratory: Respiratory: Denies chest congestion, Denies cough, Denies hemoptysis, Denies dyspnea and Denies dyspnea on exertion Gastrointestinal: Gastrointestinal: Denies melena, Denies hematochezia, Denies diarrhea, Denies nausea, Denies vomiting and Denies hematemesis Musculoskeletal: Musculoskeletal: Denies abnormal gait, Denies deformity, Denies joint swelling, Denies limited range of motion, Denies neck pain and Denies numbness Neurologic: Denies Abnormal speech present, Denies abnormal gait, Denies confusion, Denies dizziness, Denies headache(s), Denies focal weakness, Denies loss of vision, Denies numbness, Denies Other visual disturbances, Denies Sensory deficit (Neuro) and Denies weakness Psychiatric: Psychiatric: Denies confusion, Denies depression, Denies auditory hallucinations, Denies homicidal ideation and Denies suicidal ideation Endocrine: Endocrine: Denies cold intolerance, Denies excessive sweating, Denies fatigue, Denies heat intolerance and Denies palpitations Hematologic/Lymphatic: Hematologic/Lymphatic: Denies easy bleeding and Denies easy bruising Allergic/Immunologic: Allergic/Immunologic: Denies lip swelling, Denies throat swelling and Denies tongue swelling PMFSH Past Medical History Medical History Anxiety Bipolar disorder The patient reports that she has been told that she may have bipolar disorder GERD (gastroesophageal reflux disease) Hypertension Seizure disorder Stage III chronic kidney disease Surgical History Surgical History H/O gastric bypass 1998 History of History of tubal ligation Family History Family History Mother Pancreatitis, recurrent, Onset Age: 40 eventually required enzyme support w/ meals Hypertension Alzheimer's disease with early onset, Onset Age: 48 Father Hypertension Chronic kidney disease (CKD) Social History Social History Social History: She reports that her and her son are currently living in a hotel. She reports that she recently moved back to the area February. She rep
[2020-07-30 23:52] VITALS: BP 166/96; PULSE 61; RESP 16; O2SAT 99
== END 2020-07-30 23:53 | disposition home or self-care (01) ==
PROVIDERS: Emergency Provider Emergency Medicine
DX: J06.9 Acute upper respiratory infection, unspecified (principal); F41.9 Anxiety disorder, unspecified; F31.9 Bipolar disorder, unspecified; K21.9 Gastro-esophageal reflux disease without esophagitis; G40.909 Epilepsy, unspecified, not intractable, without status epilepticus; I12.9 Hypertensive chronic kidney disease with stage 1 through stage 4 chronic kidney disease, or unspecified chronic kidney disease; N18.30 Chronic kidney disease, stage 3 unspecified; Z98.84 Bariatric surgery status
CPT/HCPCS: 71046; 99283

== ENCOUNTER 2020-10-21 20:57 | Emergency (ER) | payer MEDICAID, SELFPAY ==
--- NOTE | ~2020-10-21 | XR_ITS ---
EXAMINATION: XR chest 1V portable EXAM DATE: 10/21/2020 22:11 INDICATION: Cough and shortness of breath. Fever. TECHNIQUE: Portable AP frontal chest x-ray was obtained. Comparison is made to prior examination from 07/30/2020. FINDINGS: The lungs are clear. There are no pleural effusions. The cardiomediastinal silhouette is within normal limits. There is no pneumothorax suspected. The bones and soft tissues are unremarkab le. IMPRESSION: No acute cardiopulmonary findings. Reviewed, dictated and finalized at location G.
[2020-10-21 21:03] VITALS: BP 198/110; PULSE 67; RESP 14; TEMP 36.8; O2SAT 95
--- NOTE | 2020-10-21 21:20 | ECG_ITS ---
Measurements Intervals [place] Rate: 58 P: 39 WI: 157 QRS: 42 QRSD: 83 T: 46 QT: 390 QTc: 383 Interpretive Statements SINUS BRADYCARDIA BASELINE ARTIFACT- I, II, AVR, V1 BORDERLINE ECG Electronically Signed On 10-22-2020 6:13:44 CDT by Hiren Escalante D.O.
--- NOTE | 2020-10-21 21:41 | ED.URI ---
HPI - URI/Sore Throat General Chief Complaint: Upper Respiratory Infection Stated Complaint: Cough-Poss Pnuemonia Time Seen by Provider: 10/21/20 21:22 Source: patient and RN notes reviewed Mode of arrival: ambulatory Limitations: no limitations History of Present Illness HPI Narrative: This is a 55 year old female who presents for evaluation of a worsening cough. Patient states she has been having a cough for 3 weeks. She assumed that her cough was due to allergies, but her cough has worsened over the past couple days. She states her cough is worse at night when she tries to lay down. Her cough is productive with yellow and green phlegm. She became concerned today because she coughed up some blood, and she was diagnosed with pneumonia her previous episode of hemoptysis. She also reports postnasal drainage. She reports sharp headache and sharp chest pain when she coughs. She also has nonradiating chest pain with inspiration, and intermittent shortness of breath. She reports t max of 99 F . She tried Vicks vapor rub and Benadryl without relief. She denies history PE, DVT, leg swelling or calf pain. S She has been vaccinated with moderna COVID vaccine. MD elicited complaint: cough Related Data Home Medications Medication Instructions Recorded Confirmed divalproex [Depakote] 500 mg PO BID 03/24/20 05/31/20 fluoxetine 20 mg PO DAILY 03/24/20 05/31/20 lisinopril 10 mg PO DAILY 03/24/20 06/01/20 Allergies Allergy/AdvReac Type Severity Reaction Status Date / Time [facility]iracetam [[facility]] AdvReac Confusion Verified 10/21/20 20:58 Review of Systems Review of Systems: All systems reviewed & are unremarkable except as noted in HPI and below Constitutional: Constitutional: Denies chills and Reports fever(s) ENT: Reports nasal congestion Cardiovascular: Cardiovascular: Reports chest pain and Denies radiating jaw, neck or arm pain Respiratory: Respiratory: Reports cough, Reports hemoptysis, Reports pain on inspiration and Reports dyspnea Gastrointestinal: Gastrointestinal: Denies abdominal pain, Reports diarrhea (chronic) and Denies nausea PMFSH Past Medical History Medical History Anxiety Bipolar disorder The patient reports that she has been told that she may have bipolar disorder GERD (gastroesophageal reflux disease) Hypertension Seizure disorder Stage III chronic kidney disease Surgical History Surgical History H/O gastric bypass 1998 History of History of tubal ligation Family History Family History Mother Pancreatitis, recurrent, Onset Age: 40 eventually required enzyme support w/ meals Hypertension Alzheimer's disease with early onset, Onset Age: 48 Father Hypertension Chronic kidney disease (CKD) Social History Social History Social History: She reports that her and her son are currently living in a hotel. She reports that she recently moved back to the area February. 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 After mother went on hospice she had a ?nervous breakdown and change careers. She is currently working at a [employer]. Smoking status: Never smoker Second hand tobacco smoke exposure: Yes Alcohol intake: never Drinks per week: 0 Substance use: current Substance use type: marijuana Other substance usage details: marijuana use for joint pain Last use: 05/30/2020 Gender identity (if verbalized by the patient): Female Spiritual care concerns: No Exam Const: General: no acute distress and alert Eyes: Pupils: Equal, round and reactive pupils present EOM: EOMs intact bilaterally Resp: Effort & Inspection: normal respiratory effort, not labored and not tachypneic Aus
[2020-10-21] MEDS: ALBUTEROL SULFATE (*SP) AEROSOL 1 PUFF 2 PUFF INHALATION (21:54)
[2020-10-21 21:57] LABS: Basophils Percent Auto 0.4 % (0.2-1.2); Eosinophils Absolute Auto 0.1 K/mm3 (0-0.3); Eosinophils Percent Auto 1.3 % (0-4.4); Hematocrit 34.9 % (37.0-47.0); Hemoglobin 11.3 g/dL (12.0-15.0); Immature Granulocyte Absolute 0.04 K/mm3 (0.00-0.031); Immature Granulocyte Percent A 0.4 % (0-0.5); Lymphocytes Absolute Auto 4.16 K/mm3 (0.9-3.2); Lymphocytes Percent Auto 42.2 % (18.3-44.2); Mean Corpuscular HGB Conc 32.4 g/dl (32-36); Mean Corpuscular Hemoglobin 29.5 pg (26-34); Mean Corpuscular Volume 91.1 fl (80-100); Mean Platelet Volume 10.6 fl (7.4-10.4); Monocytes Absolute Auto 0.6 K/mm3 (0.1-0.6); Neutrophils Absolute Auto 4.9 K/mm3 (1.3-6.7); Neutrophils Percent Auto 49.7 % (45.5-73.1); Platelet Count Result 244 k/mm3 (150-375); Red Blood Count 3.83 M/mm3 (4.2-5.4); Red Cell Distribution Width 13.8 % (11.5-14.5); White Blood Count 9.9 K/mm3 (4.5-10.0)
[2020-10-21 22:06] LABS: Prothrombin Time 12.6 Seconds (11.1-14.7)
[2020-10-21 22:07] LABS: Partial Thromboplastin Time 31.2 SECONDS (22.3-36.8)
[2020-10-21 22:09] LABS: D Dimer 0.31 ug/mL (<0.48)
[2020-10-21 22:10] LABS: Alanine Aminotransferase 10 U/L (4-35); Albumin Level 3.7 g/dL (3.5-5.1); Alkaline Phosphatase 60 U/L (38-126); Anion Gap 7 mmol/L (8-16); Aspartate Amino Transferase 20 U/L (14-36); Bilirubin,Total < 0.1 mg/dL (0.2-1.3); Blood Urea Nitrogen 27 mg/dL (7-17); CRP < 0.5 mg/dL (<1.0); Calcium 8.5 mg/dL (8.4-10.2); Carbon Dioxide 18 mmol/L (22-30); Chloride 112 mmol/L (98-107); Estimated CRCL calculation 27 ml/min; Estimated Glomerular Filt Rate 29; Glucose 84 mg/dL (65-105); Potassium 4.9 mmol/L (3.4-5.0); Sodium 137 mmol/L (137-145)
[2020-10-21 22:19] LABS: Troponin I < 0.012 ng/mL (0.000-0.034)
[2020-10-21 22:39] LABS: Alveolar/Arterial O2 Gradient 17.9 mmHg; Base Excess ABG -7.2 mEq/l (+/-2.0); Carboxyhemoglobin 0.5 % THb (0-2.0); Fractional Inspired Oxygen 21 %; HCO3 ABG 15.4 mEq/l (22.0-26.0); Methemoglobin ABG 0.2 %THb (0-1.5); Oxyhemoglobin 96.8 % THb (90.0-100.0); PO2 ABG 103.1 mmHg (80.0-100.0); PO2 FiO2 Ratio Arterial Blood 4.91 %; Reduced Hemoglobin 2.5 %THb (0-5.0); Total Hemoglobin 12.4 g/dL (12.0-18.0); pH ABG 7.425 (7.350-7.450)
[2020-10-21 22:40] LABS: Device ROOM AIR; Modified Allen's Test Pass; Site Drawn RIGHT RADIAL
--- NOTE | 2020-10-21 23:00 | PC.NURSE ---
assumed care of pt. at this time. Report from MELVINA Bansal
[2020-10-21 23:17] VITALS: BP 144/88; PULSE 78; RESP 19; O2SAT 97
[2020-10-22] VITALS: BP 133/67; PULSE 67; RESP 14; O2SAT 100
== END 2020-10-22 | disposition home or self-care (01) ==
PROVIDERS: Emergency Provider General Practice
DX: J06.9 Acute upper respiratory infection, unspecified (principal); K21.9 Gastro-esophageal reflux disease without esophagitis; I12.9 Hypertensive chronic kidney disease with stage 1 through stage 4 chronic kidney disease, or unspecified chronic kidney disease; N18.30 Chronic kidney disease, stage 3 unspecified; G40.909 Epilepsy, unspecified, not intractable, without status epilepticus; F41.9 Anxiety disorder, unspecified; F31.9 Bipolar disorder, unspecified; Z98.84 Bariatric surgery status; Z87.01 Personal history of pneumonia (recurrent); R00.1 Bradycardia, unspecified
CPT/HCPCS: 36415; 36600; 71045; 80053; 82375; 82805; 83050; 84484; 85025; 85380; 85610; 85730; 86140; 93005; 94640; 99284; A9270

== ENCOUNTER 2021-02-25 17:48 | Emergency (ER) | payer OTHER, MEDICAID, SELFPAY ==
--- NOTE | ~2021-02-25 | XR_ITS ---
XR tibia fibula RT 2V DATE: 02/25/2021 18:28 INDICATION: Trauma. Pain. TECHNIQUE: AP and lateral views COMPARISON: None FINDINGS: No fracture or dislocation, periosteal reaction or bone destruction. Normal alignment at th e knee and ankle joints. IMPRESSION: Negative Reviewed, dictated and finalized at location A. IMPRESSION: Negative
--- NOTE | ~2021-02-25 | XR_ITS ---
XR foot RT min 3V DATE: 02/25/2021 18:28 INDICATION: Boxes were dropped on the foot. Swelling and tingling on the dorsum of the foot. TECHNIQUE: 4 views COMPARISON: None FINDINGS: There is mild osteoarthritis at the first metatarsophalangeal joint. No fracture or disloca tion, periosteal reaction or bone destruction. IMPRESSION: Osteoarthritis at first metatarsophalangeal joint No fracture or dislocation Reviewed, dictated and finalized at location A.
[2021-02-25 18:00] VITALS: BP 151/97; PULSE 87; RESP 15; TEMP 36.4; O2SAT 100
--- NOTE | 2021-02-25 19:35 | ED.LOWEXIN ---
HPI - Extremity Injury (Lower) General Chief Complaint: Extremity Injury, Lower Stated Complaint: work injury, packages fell on R leg Time Seen by Provider: 02/25/21 18:39 Source: patient Mode of arrival: ambulatory Limitations: no limitations History of Present Illness HPI Narrative: This is a 55-year-old female that presents to the emergency department after an injury today at work with right chen and foot pain. Reports some boxes fell on her right leg. Reports bruising and pain to the area. Denies decreased ROM or numbness. Related Data Home Medications Medication Instructions Recorded Confirmed divalproex [Depakote] 500 mg PO BID 03/24/20 05/31/20 fluoxetine 20 mg PO DAILY 03/24/20 05/31/20 lisinopril 10 mg PO DAILY 03/24/20 06/01/20 Allergies Allergy/AdvReac Type Severity Reaction Status Date / Time levetiracetam [From Keppra] AdvReac Confusion Verified 02/25/21 18:31 Review of Systems Review of Systems: CONSTITUTIONAL: Denies fever MUSCULOSKELETAL: Reports joint pain, and myalgia. NEUROLOGIC: Denies numbness All systems reviewed & are unremarkable except as noted in HPI and below PMFSH Past Medical History Medical History Anxiety Bipolar disorder The patient reports that she has been told that she may have bipolar disorder GERD (gastroesophageal reflux disease) Hypertension Seizure disorder Stage III chronic kidney disease Surgical History Surgical History H/O gastric bypass 1998 History of History of tubal ligation Family History Family History Mother Pancreatitis, recurrent, Onset Age: 40 eventually required enzyme support w/ meals Hypertension Alzheimer's disease with early onset, Onset Age: 48 Father Hypertension Chronic kidney disease (CKD) Social History Social History Social History: She reports that her and her son are currently living in a hotel. She reports that she recently moved back to the area February. 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 After mother went on hospice she had a ?nervous breakdown and change careers. She is currently working at a [employer]. Smoking status: Never smoker Second hand tobacco smoke exposure: Yes Alcohol intake: never Drinks per week: 0 Alcohol use details: rarely, last drink 3 years ago Substance use: current Substance use type: marijuana Other substance usage details: marijuana use for joint pain Last use: 05/30/2020 Gender identity (if verbalized by the patient): Female Spiritual care concerns: No Exam Narrative: GENERAL: Well-appearing, well-nourished, and in no acute distress. HEAD: Normocephalic, atraumatic. EYES: EOMI. EXTREMITIES: Normal range of motion. No edema or obvious deformity. Normal DP pulses. Normal sensation SKIN: Warm, dry, no rash. NEURO: No focal deficits. Alert and oriented x3. PSYCH: Normal mood and affect Course Vital Signs Vital signs: Vital Signs Temperature 97.6 F 02/25/21 18:00 Pulse Rate 87 02/25/21 18:00 Respiratory Rate 15 02/25/21 18:00 Blood Pressure 151/97 H 02/25/21 18:00 Pulse Oximetry 100 02/25/21 18:00 Temperature 97.6 F 02/25/21 18:00 Pulse Rate 87 02/25/21 18:00 Respiratory Rate 15 02/25/21 18:00 Blood Pressure 151/97 H 02/25/21 18:00 Pulse Oximetry 100 02/25/21 18:00 MDM - Extremity Injury (Lower) MDM Narrative Medical decision making narrative: Patient presents to the emergency department for right lower leg and foot pain after an injury today. She is neurovascularly intact. Right tib-fib and foot x-rays are without acute osseous abnormalities. Patient was updated on case findings. Placed in a postop shoe for comfort. Instructed to res
[2021-02-25] MEDS: ACETAMINOPHEN 500 MG TABLET 1000 MG PO (19:50)
[2021-02-25] MEDS: traMADol HCL (*CRX) 50 MG TABLET PO (20:01)
[2021-02-25 20:03] VITALS: BP 119/80; PULSE 88; RESP 17; O2SAT 99
== END 2021-02-25 20:04 | disposition home or self-care (01) ==
PROVIDERS: Emergency Provider Emergency Medicine
DX: S90.31XA Contusion of right foot, initial encounter (principal); I12.9 Hypertensive chronic kidney disease with stage 1 through stage 4 chronic kidney disease, or unspecified chronic kidney disease; N18.30 Chronic kidney disease, stage 3 unspecified; G40.909 Epilepsy, unspecified, not intractable, without status epilepticus; K21.9 Gastro-esophageal reflux disease without esophagitis; F41.9 Anxiety disorder, unspecified; Z98.84 Bariatric surgery status; M19.071 Primary osteoarthritis, right ankle and foot; W20.8XXA Other cause of strike by thrown, projected or falling object, initial encounter
CPT/HCPCS: 73590; 73630; 99284; A9270

== ENCOUNTER 2021-07-25 12:44 | Outpatient (CLI) | payer BC, SELFPAY ==
--- NOTE | ~2021-07-25 | XR_ITS ---
EXAMINATION: XR shoulder LT min 2V DATE: 07/25/2021 13:46 INDICATION: Left arm numbness. TECHNIQUE: 4 views of left shoulder were obtained. COMPARISON: Chest single view 10/21/2020 FINDINGS: Bone alignment is normal. No fracture. There is mild osteoarthritis of acromioclavicular dulce int. Glenohumeral joint is normal. IMPRESSION: 1. Mild osteoarthritis of acromioclavicular joint. Reviewed, dictated and finalized at location A.
--- NOTE | ~2021-07-25 | XR_ITS ---
EXAMINATION: XR foot LT min 3V DATE: 07/25/2021 13:45 INDICATION: Lateral aspect bunion TECHNIQUE: Dorsoplantar, two oblique and lateral views of the left foot were obtained. COMPARISON: None. FINDINGS: Bone alignment is normal. No fracture. Minimal to mild osteoarthritis at the first metatarsophalangea l and a few tarsometatarsal and interphalangeal joints. No erosions or periosteal reaction. Soft tiss ues are unremarkable. IMPRESSION: 1. Minimal to mild polyarticular osteoarthritis in the left mid and forefoot. Reviewed, dictated and finalized at location B.
--- NOTE | ~2021-07-25 | XR_ITS ---
EXAMINATION: XR chest 2V DATE: 07/25/2021 13:45 INDICATION: Shortness of breath. COVID. TECHNIQUE: PA and lateral views of the chest were obtained. COMPARISON: Chest radiograph dated 10/21/2020 FINDINGS: The lungs remain clear with no focal airspace opacities, pulmonary edema, pleural effusion or pneumot horax. The cardiomediastinal silhouette is normal. Mild thoracic spondylosis. IMPRESSION: 1. No acute cardiopulmonary disease. Reviewed, dictated and finalized at location B.
--- NOTE | ~2021-07-25 | XR_ITS ---
EXAMINATION: XR wrist LT min 3V DATE: 07/25/2021 13:46 INDICATION: Left arm numbness. Prior fracture. TECHNIQUE: Posteroanterior, ulnar deviation, oblique, and lateral views of the left wrist were obtain ed. COMPARISON: none FINDINGS: Old healed fracture deformity of the distal left radius which is healed with dorsal angulation result ing in 55 degrees dorsal tilt of the distal articular surface. Small corticated ossicle near the tip the lateral malleolus represent either a chronic nonunited ulnar styloid avulsion fracture versus het erotopic ossicle related to chronic soft tissue injury. No acute fracture. Joint spaces are relativel y preserved. Soft tissues are unremarkable. IMPRESSION: 1. Malunited chronic distal left radial fracture with 55 degrees dorsal tilt of the distal articular surface. No acute osseous abnormality. Reviewed, dictated and finalized at location B.
--- NOTE | ~2021-07-25 | XR_ITS ---
EXAMINATION:XR cervical spine 4-5V, XR lumbar spine 2-3V, XR thoracic spine 3V DATE: 07/25/2021 13:45 INDICATION: Left arm numbness. TECHNIQUE: 1. AP, lateral, lateral swimmers and odontoid views of the cervical spine are provided. 2. AP, lateral and lateral swimmer's views of the thoracic spine were obtained. 3. AP, lateral and coned-down lateral lumbosacral views of the lumbar spine were obtained. COMPARISON: None FINDINGS: Cervical spine: Straightening of the normal cervical lordosis. 1-2 mm retrolisthesis C5 on C6. Odontoid is intact. Normal atlantoaxial interval. Moderate disc height loss at C5-C6 and C6-C7 with mild to moderate associated uncovertebral osteoarthritis. There is moderate left-sided and mild to m oderate right-sided multilevel cervical facet osteoarthritis. Prevertebral soft tissues are normal. Thoracic spine: 7 degrees lower thoracic levocurvature. Sagittal alignment is normal. Vertebral body heights are norm al. Multilevel mild disc height loss in the upper thoracic spine. Visualized portion of the lungs are clear. No pleural effusion or pneumothorax. Cardiomediastinal silhouette is normal. Lumbar spine: 3 mm anterolisthesis L4 on L5. Vertebral body heights are normal. Severe disc height loss at L5-S1, m oderate disc height loss at L4-L5 and minimal disc height loss at L3-L4. Moderate to severe bilateral lower lumbar facet osteoarthritis. Several phleboliths in the pelvis. IMPRESSION: 1. Moderate lower cervical spondylosis, moderate to severe lower lumbar spondylosis and mild spondylo sis of the remaining thoracic, upper cervical and upper lumbar spine. Reviewed, dictated and finalized at location B. IMPRESSION: 1. Moderate lower cervical spondylosis, moderate to severe lower lumbar spondyl osis and mild spondylosis of the remaining thoracic, upper cervical and upper l umbar spine. IMPRESSION: 1. Moderate lower cervical spondylosis, moderate to severe lower lumbar spondyl osis and mild spondylosis of the remaining thoracic, upper cervical and upper l umbar spine.
--- NOTE | ~2021-07-25 | CT_ITS ---
EXAMINATION: CT abdomen pelvis wo con DATE: 07/25/2021 13:25 INDICATION: Right upper quadrant pain. TECHNIQUE: Computed tomography (CT) of the abdomen and pelvis was performed without intravenous contr ast. Automated exposure control and iterative reconstruction technique were employed. The dose-length product was 330.73 mGy-cm. COMPARISON: 05/31/2020. FINDINGS: Lower thorax: Unremarkable. Liver: Normal Biliary/Gallbladder: No bile duct dilation. Normal gallbladder. Spleen: No mass. No splenomegaly. Pancreas: No mass or duct dilation. Adrenals:No mass. Kidneys: No mass, stone, or hydronephrosis. Mild atrophy/scarring. GI tract: No dilation or wall thickening. Normal appendix. Prior gastric bypass surgery. Mesentery/Peritoneum: No ascites or mass. Retroperitoneum: No mass. Pelvis: Urinary bladder is unremarkable. Pelvic organs are within normal limits. Stable degenerative uterine fibroid calcification and small bilateral ovarian cysts. Bones/Soft Tissues: Degenerative changes in the lower lumbar spine. No acute osseous finding. Additional Findings: None. IMPRESSION: No acute abdominopelvic process detected. Reviewed, dictated and finalized at location K.
[2021-07-25 14:37] LABS: Alanine Aminotransferase 18 U/L (4-35); Albumin Level 4.2 g/dL (3.5-5.1); Alkaline Phosphatase 82 U/L (38-126); Amylase 89 U/L (30-110); Anion Gap 6 mmol/L (8-16); Aspartate Amino Transferase 26 U/L (14-36); Bilirubin,Total 0.3 mg/dL (0.2-1.3); Blood Urea Nitrogen 20 mg/dL (7-17); Calcium 8.7 mg/dL (8.4-10.2); Carbon Dioxide 22 mmol/L (22-30); Chloride 109 mmol/L (98-107); Cholesterol 216 mg/dL (0-200); Estimated Glomerular Filt Rate 31; Glucose 95 mg/dL (65-110); HDL Direct 60 mg/dL; Lipase 90 U/L (23-300); Potassium 4.9 mmol/L (3.4-5.0); Sodium 137 mmol/L (137-145); Triglycerides 169 mg/dL (<150)
[2021-07-25 14:37] LABS: Iron 181 ug/dL (37-170)
[2021-07-25 14:44] LABS: LDL Cholesterol Direct 88 mg/dL
[2021-07-25 14:45] LABS: Percent Iron Saturation 43 % (20-50)
[2021-07-25 14:46] LABS: Add Urine Microscopic? YES; Appearance Urine Clear (Clear); Bilirubin Urine Negative (Negative); Blood Urine Negative (Negative); Color Urine Yellow (Yellow); Glucose Urine UA Negative (Negative); Ketones Urine Negative (Negative); Leukocyte Esterase Ur Negative LEU/UL (NEGATIVE); Mucus Urine Rare /lpf; Nitrate Urine Negative (Negative); Protein Urine Negative (Negative); RBC Urine 0-2 /hpf (0-2); Specific Grav Ur 1.011 (1.001-1.035); Squamous Epithelial Cell Urine Few /hpf (Few); Urobilinogen Urine Negative mg/dL (<2.0); WBC Urine 0-3 /hpf (0-3)
[2021-07-25 14:51] LABS: Hemoglobin A1C 5.5 % (<5.7)
[2021-07-25 14:54] LABS: Erythrocyte Sedimentation Rate 13 mm/hr (0-20)
[2021-07-25 14:56] LABS: Hematocrit 37.7 % (37.0-47.0); Hemoglobin 12.2 g/dL (12.0-15.0); Mean Corpuscular HGB Conc 32.4 g/dl (32-36); Mean Corpuscular Hemoglobin 29.3 pg (26-34); Mean Corpuscular Volume 90.6 fl (80-100); Mean Platelet Volume 11.7 fl (7.4-10.4); Platelet Count Result 256 k/mm3 (150-375); Red Blood Count 4.16 M/mm3 (4.2-5.4); Red Cell Distribution Width 14.1 % (11.5-14.5); White Blood Count 7.6 K/mm3 (4.5-10.0)
[2021-07-25 15:07] LABS: Creatinine Urine 72.9 mg/dL
[2021-07-25 15:12] LABS: MALB Creatinine Ratio 13.9 mg/g (0-30); Microalbumin Urine Random 10.1 mg/L (0-16.7)
[2021-07-25 15:39] LABS: Folic Acid 13.9 ng/mL (2.76->20)
[2021-07-25 15:44] LABS: Free T4 Free Thyroxine 0.98 ng/mL (0.78-2.19)
[2021-07-25 17:23] LABS: Hepatitis B Surface Antigen Negative (Negative)
[2021-07-25 17:30] LABS: HAV RESULT Negative (Negative); Hepatitis B Core IgM Result Negative (Negative)
[2021-07-25 17:41] LABS: Hepatitis C Virus Antibody Negative (Negative)
[2021-07-25 17:58] LABS: Vitamin D 25 Hydroxy 48.5 ng/mL
[2021-07-25 21:33] LABS: Rheumatoid Factor < 8.6 IU/ML (<12)
[2021-07-26 11:54] LABS: Rapid Plasma Reagin Non-Reactive (NonReactive)
== END 2021-07-25 12:45 | disposition home or self-care (01) ==
LOC: ANHIMG 12:55
PROVIDERS: PCP Emergency Medicine; Visit Provider Emergency Medicine
DX: Z00.00 Encounter for general adult medical examination without abnormal findings (principal); R10.11 Right upper quadrant pain; R11.0 Nausea; M47.892 Other spondylosis, cervical region; M47.896 Other spondylosis, lumbar region; M47.894 Other spondylosis, thoracic region; S52.502P Unspecified fracture of the lower end of left radius, subsequent encounter for closed fracture with malunion; X58.XXXD Exposure to other specified factors, subsequent encounter; N18.30 Chronic kidney disease, stage 3 unspecified; D64.9 Anemia, unspecified; F41.9 Anxiety disorder, unspecified; M12.9 Arthropathy, unspecified; F32.9 Major depressive disorder, single episode, unspecified; I12.9 Hypertensive chronic kidney disease with stage 1 through stage 4 chronic kidney disease, or unspecified chronic kidney disease; R10.13 Epigastric pain; R53.83 Other fatigue; Z20.2 Contact with and (suspected) exposure to infections with a predominantly sexual mode of transmission
CPT/HCPCS: 36415; 71046; 72050; 72072; 72100; 73030; 73110; 73630; 74176; 80053; 80061; 80074; 81001; 82043; 82150; 82306; 82607; 82746; 83036; 83540; 83550; 83690; 84439; 84443; 85027; 85652; 86038; 86430; 86592; 87086; 87491; 87591

== ENCOUNTER 2022-01-03 08:08 | Outpatient (CLI) | payer OTHER, SELFPAY ==
--- NOTE | ~2022-01-03 | XR_ITS ---
EXAMINATION: XR_ENEMABAC_CR DATE: 01/03/2022 09:01 INDICATION: Epigastric abdominal pain. Incomplete colonoscopy. TECHNIQUE: A sustainable products marketing manager radiograph was obtained. A catheter was inserted into the patient's rectum. Contra st was infused by gravity. Gas was infused by hand pump. Fluoroscopic spot images and conventional ra diographs were obtained. Fluoroscopy exposure time was 0.6 minutes. The total number of images was 34 . COMPARISON: CT abdomen and pelvis 07/25/2021 FINDINGS: There is no dilated bowel. There is no mass or stricture. IMPRESSION: 1. Normal double contrast enema. Reviewed, dictated and finalized at location A.
== END 2022-01-03 08:09 | disposition home or self-care (01) ==
LOC: ANHIMG 08:08
PROVIDERS: PCP Emergency Medicine; Visit Provider Internal Medicine Gastroenterology
DX: R10.13 Epigastric pain (principal)
CPT/HCPCS: 74280

== ENCOUNTER 2022-02-16 17:44 | Emergency (ER) | payer OTHER, SELFPAY ==
--- NOTE | ~2022-02-16 | XR_ITS ---
XR chest 2V DATE: 02/16/2022 18:13 INDICATION: Right-sided lung pain with inspiration TECHNIQUE: 2 views COMPARISON: 07/25/2021 2 view chest FINDINGS: Normal heart size. No hilar or mediastinal enlargement. No pulmonary infiltrate or consolid ation, pleural effusion or pulmonary vascular congestion or pneumothorax. Included skeletal structure s are unremarkable. IMPRESSION: No active cardiopulmonary disease Reviewed, dictated and finalized at location A.
[2022-02-16 17:46] VITALS: BP 155/115; PULSE 69; RESP 18; TEMP 36.3; O2SAT 100
[2022-02-16] MEDS: BENZONATATE 100 MG CAPSULE 200 MG PO (19:58)
[2022-02-16] MEDS: ALBUTEROL SULFATE (*SP) INHALER 2 PUFF INHALATION (20:01)
[2022-02-16 20:12] LABS: Basophils Percent Auto 0.3 % (0.2-1.2); Eosinophils Absolute Auto 0.1 K/mm3 (0-0.3); Eosinophils Percent Auto 0.9 % (0-4.4); Hematocrit 37.5 % (37.0-47.0); Hemoglobin 12.1 g/dL (12.0-15.0); Immature Granulocyte Absolute 0.02 K/mm3 (0.00-0.031); Immature Granulocyte Percent A 0.3 % (0-0.5); Lymphocytes Percent Auto 42.8 % (18.3-44.2); Mean Corpuscular HGB Conc 32.3 g/dl (32-36); Mean Corpuscular Hemoglobin 28.8 pg (26-34); Mean Corpuscular Volume 89.3 fl (80-100); Monocytes Absolute Auto 0.6 K/mm3 (0.1-0.6); Monocytes Percent Auto 7.1 % (2.6-8.5); Neutrophils Absolute Auto 3.9 K/mm3 (1.3-6.7); Neutrophils Percent Auto 48.6 % (45.5-73.1); Platelet Count Result 263 k/mm3 (150-375); Red Cell Distribution Width 13.2 % (11.5-14.5); White Blood Count 7.9 K/mm3 (4.5-10.0)
[2022-02-16 20:14] LABS: Add Urine Microscopic? NO; Appearance Urine Clear (Clear); Bilirubin Urine Negative (Negative); Blood Urine Negative (Negative); Color Urine Straw (Yellow); Glucose Urine UA Negative (Negative); Ketones Urine Negative (Negative); Leukocyte Esterase Ur Negative LEU/UL (Negative); Nitrate Urine Negative (Negative); Protein Urine Negative (Negative); Specific Grav Ur 1.006 (1.001-1.035); Urobilinogen Urine Negative mg/dL (<2.0)
[2022-02-16 20:17] LABS: Alanine Aminotransferase 27 U/L (6-35); Albumin Level 4.5 g/dL (3.5-5.1); Alkaline Phosphatase 86 U/L (38-126); Anion Gap 7 mmol/L (8-16); Aspartate Amino Transferase 29 U/L (14-36); Bilirubin,Total 0.3 mg/dL (0.2-1.3); Blood Urea Nitrogen 31 mg/dL (7-17); Calcium 8.9 mg/dL (8.4-10.2); Carbon Dioxide 18 mmol/L (22-30); Chloride 111 mmol/L (98-107); Estimated CRCL calculation 24 ml/min; Estimated Glomerular Filt Rate 28; Glucose 139 mg/dL (65-110); Potassium 5.2 mmol/L (3.4-5.0); Sodium 136 mmol/L (137-145)
--- NOTE | 2022-02-16 20:23 | ED.GENADULT ---
HPI - General Adult General Chief complaint: Upper Respiratory Infection Stated complaint: sob, chest heavy Time Seen by Provider: 02/16/22 19:35 History of Present Illness HPI narrative: Patient 56-year-old female who presents to emergency department with chief complaint of cough. The patient reports that she has history of seizures and also history of anxiety also history of frequent pneumonia. The patient states that for the last 2 weeks she has had a cough and has had a uncomfortable feeling in her right side of her lungs. Patient reports that it is worse with cough and improved with rest the patient reports she is had a clear sputum and has had a low-grade temperature of 99 the patient reports that she is also had a chronic uncomfortable feeling in her right groin and has history of renal insufficiency. Related Data Home Medications Medication Instructions Recorded Confirmed divalproex 500 mg tablet,delayed 500 mg PO BID 03/24/20 05/31/20 release (Depakote) fluoxetine 20 mg tablet 20 mg PO DAILY 03/24/20 05/31/20 lisinopril 10 mg tablet 10 mg PO DAILY 03/24/20 06/01/20 Allergies Allergy/AdvReac Type Severity Reaction Status Date / Time levetiracetam [From Keppra] AdvReac Confusion Verified 02/25/21 18:31 Review of Systems Review of Systems: A 10 system review of systems was completed on the patient and is negative except for what is stated in the HPI. Nursing and ancillary documentation was reviewed. [facility] Past Medical History Medical History Anxiety Bipolar disorder The patient reports that she has been told that she may have bipolar disorder GERD (gastroesophageal reflux disease) Hypertension Seizure disorder Stage III chronic kidney disease Surgical History Surgical History H/O gastric bypass 1998 History of History of tubal ligation Family History Family History Mother Pancreatitis, recurrent, Onset Age: 40 eventually required enzyme support w/ meals Hypertension Alzheimer's disease with early onset, Onset Age: 48 Father Hypertension Chronic kidney disease (CKD) Social History Social History Social History: She reports that her and her son are currently living in a hotel. She reports that she recently moved back to the area February. 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 After mother went on hospice she had a ?nervous breakdown and change careers. She is currently working at a [employer]. Smoking status: Never smoker Second hand tobacco smoke exposure: Yes Alcohol intake: never Drinks per week: 0 Alcohol use details: rarely, last drink 3 years ago Substance use: current Substance use type: marijuana Other substance usage details: marijuana use for joint pain Last use: 05/30/2020 Gender identity (if verbalized by the patient): Female Spiritual care concerns: No Exam Narrative: GENERAL: Well-appearing, well-nourished, and in no acute distress. HEAD: Normocephalic, atraumatic. EYES: PERRLA and EOMI. ENT: Nares clear, no rhinorrhea or epistaxis. Mucous membranes moist. NECK: Supple. CHEST: Clear to auscultation. No respiratory distress. HEART: Regular rate and rhythm. No murmur heard. Normal peripheral pulses. ABDOMEN: Soft, nontender, nondistended, normal active bowel sounds. EXTREMITIES: Normal range of motion. No edema. SKIN: Warm, dry, no rash. NEURO: No focal deficits. Alert and oriented x3. PSYCH: Normal mood and affect. Course Course Emergency Course: Due to the symptoms lasting for over 2 weeks and also the patient with probable COPD the patient will be started on a course of antibiotics. Patient will also be given an inhaler and also
== END 2022-02-16 21:31 | disposition home or self-care (01) ==
PROVIDERS: Emergency Provider Emergency Medicine; PCP Emergency Medicine
DX: J20.9 Acute bronchitis, unspecified (principal); I12.9 Hypertensive chronic kidney disease with stage 1 through stage 4 chronic kidney disease, or unspecified chronic kidney disease; N18.30 Chronic kidney disease, stage 3 unspecified; G40.909 Epilepsy, unspecified, not intractable, without status epilepticus; K21.9 Gastro-esophageal reflux disease without esophagitis; F41.9 Anxiety disorder, unspecified; Z98.84 Bariatric surgery status
CPT/HCPCS: 36415; 71046; 80053; 81003; 85025; 99283; A9270

== ENCOUNTER 2022-03-28 16:24 | Outpatient (CLI) | payer OTHER, SELFPAY ==
[2022-03-28 16:51] LABS: Basophils Percent Auto 0.4 % (0.2-1.2); Eosinophils Absolute Auto 0.1 K/mm3 (0-0.3); Eosinophils Percent Auto 0.8 % (0-4.4); Hematocrit 31.8 % (37.0-47.0); Hemoglobin 10.3 g/dL (12.0-15.0); Immature Granulocyte Absolute 0.04 K/mm3 (0.00-0.031); Immature Granulocyte Percent A 0.5 % (0-0.5); Lymphocytes Absolute Auto 2.58 K/mm3 (0.9-3.2); Lymphocytes Percent Auto 32.4 % (18.3-44.2); Mean Corpuscular HGB Conc 32.4 g/dl (32-36); Mean Corpuscular Hemoglobin 28.9 pg (26-34); Mean Corpuscular Volume 89.1 fl (80-100); Monocytes Absolute Auto 0.6 K/mm3 (0.1-0.6); Monocytes Percent Auto 7.7 % (2.6-8.5); Neutrophils Absolute Auto 4.7 K/mm3 (1.3-6.7); Neutrophils Percent Auto 58.2 % (45.5-73.1); Platelet Count Result 247 k/mm3 (150-375); Red Blood Count 3.57 M/mm3 (4.2-5.4); Red Cell Distribution Width 13.7 % (11.5-14.5)
[2022-03-28 17:14] LABS: Iron 38 ug/dL (37-170)
[2022-03-28 17:20] LABS: Alanine Aminotransferase 15 U/L (6-35); Alkaline Phosphatase 70 U/L (38-126); Anion Gap 5 mmol/L (8-16); Aspartate Amino Transferase 19 U/L (14-36); Bilirubin,Total 0.3 mg/dL (0.2-1.3); Blood Urea Nitrogen 27 mg/dL (7-17); Calcium 8.2 mg/dL (8.4-10.2); Carbon Dioxide 22 mmol/L (22-30); Chloride 111 mmol/L (98-107); Estimated Glomerular Filt Rate 34; Glucose 94 mg/dL (65-110); Potassium 5.3 mmol/L (3.4-5.0); Sodium 138 mmol/L (137-145)
[2022-03-28 17:23] LABS: Percent Iron Saturation 9 % (20-50)
[2022-03-28 17:50] LABS: Ferritin 5.88 ng/mL (11.1-264)
[2022-03-29 00:30] LABS: Folic Acid 7.3 ng/mL (2.76->20)
== END 2022-03-28 16:25 | disposition home or self-care (01) ==
LOC: ANHLAB 16:28
PROVIDERS: PCP Emergency Medicine; Visit Provider Internal Medicine Hematology & Oncology
DX: D64.9 Anemia, unspecified (principal)
CPT/HCPCS: 36415; 80053; 82607; 82728; 82746; 83540; 83550; 84443; 85025

== ENCOUNTER 2022-11-21 10:09 | Outpatient (CLI) | payer OTHER, SELFPAY ==
[2022-11-21 11:05] LABS: Hemoglobin 11.7 g/dL (12.0-15.0); Mean Corpuscular HGB Conc 32.5 g/dl (32-36); Mean Corpuscular Volume 89.3 fl (80-100); Mean Platelet Volume 10.8 fl (7.4-10.4); Platelet Count Result 253 k/mm3 (150-375); Red Blood Count 4.03 M/mm3 (4.2-5.4); Red Cell Distribution Width 13.8 % (11.5-14.5); White Blood Count 6.7 K/mm3 (4.5-10.0)
[2022-11-21 11:23] LABS: Valproic Acid 42.7 ug/mL (50-120)
[2022-11-21 11:30] LABS: Alanine Aminotransferase 14 U/L (6-35); Albumin Level 4.1 g/dL (3.5-5.1); Alkaline Phosphatase 73 U/L (38-126); Anion Gap 8 mmol/L (8-16); Aspartate Amino Transferase 17 U/L (14-36); Bilirubin,Total 0.3 mg/dL (0.2-1.3); Blood Urea Nitrogen 28 mg/dL (7-17); Calcium 8.7 mg/dL (8.4-10.2); Carbon Dioxide 24 mmol/L (22-30); Chloride 105 mmol/L (98-107); Cholesterol 169 mg/dL (0-200); Estimated Glomerular Filt Rate 31; Glucose 89 mg/dL (65-110); HDL Direct 63 mg/dL; Potassium 4.3 mmol/L (3.4-5.0); Sodium 137 mmol/L (137-145); Triglycerides 121 mg/dL (<150)
[2022-11-21 11:31] LABS: Hemoglobin A1C 5.8 % (<5.7)
[2022-11-21 11:35] LABS: Vitamin D 25 Hydroxy 62.4 ng/mL
[2022-11-21 11:41] LABS: LDL Cholesterol Direct 60 mg/dL
[2022-11-21 12:03] LABS: Thyroid Stimulating Hormone 0.626 uIU/mL (0.465-4.680)
[2022-11-21 12:57] LABS: Folic Acid 12.6 ng/mL (2.76->20)
== END 2022-11-21 10:10 | disposition home or self-care (01) ==
PROVIDERS: PCP Emergency Medicine
DX: Z51.81 Encounter for therapeutic drug level monitoring (principal)
CPT/HCPCS: 36415; 80053; 80061; 80164; 82306; 82607; 82746; 83036; 84443; 85027

== ENCOUNTER 2023-03-02 12:51 | Outpatient (CLI) | payer OTHER, SELFPAY ==
--- NOTE | 2023-03-02 13:16 | ECG_ITS ---
Measurements Intervals [place] Rate: 58 P: 36 OR: 159 QRS: 27 QRSD: 87 T: 40 QT: 392 QTc: 387 Interpretive Statements SINUS BRADYCARDIA BASELINE ARTIFACT- I, II, AVR, AVL, AVF BORDERLINE ECG COMPARED TO ECG 10/21/2020 21:12:37 NO SIGNIFICANT CHANGES Electronically Signed On 03-02-2023 13:29:21 ROAD MIXER OPERATOR by Hiren Escalante D.O.
[2023-03-02 13:45] LABS: Anion Gap 7 mmol/L (8-16); Blood Urea Nitrogen 25 mg/dL (7-17); Calcium 9.1 mg/dL (8.4-10.2); Carbon Dioxide 26 mmol/L (22-30); Chloride 103 mmol/L (98-107); Estimated Glomerular Filt Rate 31; Glucose 91 mg/dL (65-110); Potassium 4.8 mmol/L (3.4-5.0); Sodium 136 mmol/L (137-145)
[2023-03-02 13:47] LABS: Partial Thromboplastin Time 31.4 SECONDS (22.3-36.8); Prothrombin Time 13.2 Seconds (11.1-14.7)
[2023-03-02 14:28] LABS: Valproic Acid 50.6 ug/mL (50-120)
== END 2023-03-02 12:52 | disposition home or self-care (01) ==
LOC: ANHSURGERY 12:54
PROVIDERS: Anesthesiology; PCP Family Medicine; Visit Provider Obstetrics & Gynecology
DX: N75.0 Cyst of Bartholin's gland (principal); I12.9 Hypertensive chronic kidney disease with stage 1 through stage 4 chronic kidney disease, or unspecified chronic kidney disease; N18.30 Chronic kidney disease, stage 3 unspecified; Z01.818 Encounter for other preprocedural examination; R94.31 Abnormal electrocardiogram [ECG] [EKG]
CPT/HCPCS: 36415; 80048; 80164; 85610; 85730; 93005

== ENCOUNTER 2023-03-05 02:04 | Day surgery (SDC) | payer OTHER, SELFPAY ==
[2023-02-27 14:01] VITALS: BMI 24.3
--- NOTE | 2023-02-27 14:10 | PC.NURSE ---
Report to the Outpatient Waiting Room, entrance under the green pavilion located off [facility], at time _1100_ on date _[id number]_. Planned Procedure Time: _1300_. Time changes happen often and if your time is changed the preop area will call you the afternoon before. - You and your visitor will be asked to self-screen and do not enter if you have any COVID symptoms. - A mask is optional within the hospital at this time. Patients may have clear liquids (water, carbonated beverages, clear teas, apple juice) until 3 hours prior to surgery with a maximum of 20 ounces. - No food from midnight until time of surgery Take the following medications with a SIP of water the morning of surgery: ____Fluoxetine and Depakote DO NOT STOP ANY OF YOUR OTHER PRESCRIPTION MEDICATIONS PRIOR TO SURGERY ?EXCEPT THE FOLLOWING Medications to discontinue per physician None Date to take last dose Please no make-up, nail kinyarwanda, hairspray, perfume, deodorant, or body powder the day of surgery. No jewelry (including any body piercings) or valuables the day of surgery, leave them at home. Please take a shower or bath the night before, or the morning of, surgery with an antibacterial soap. Wear comfortable, loose fitting clothing. - Jewelry must be removed prior to entering the operating room. Rings and piercings that are not removed may be cut off. - The hospital will not accept responsibility for valuables. - Please leave all valuables, including medications, at home the day of surgery. If you are going home after surgery, a licensed truss driver helper must drive you home. - NO public transportation without another adult if you receive anesthesia. - We recommend that an adult stay with you for 24 hours following discharge. - We also recommend that you do not drive, make important decision, drink alcoholic beverages, or take any drugs that were not prescribed by your health care provider for at least 24 hours after your discharge time. Follow any additional instructions given to you from your surgeon. If you or anyone in your household have experienced Covid symptoms in the past week, please notify your surgeon or the nurse liaison at the phone number below for possible testing. Telephone instructions given to __Shanda___and asked if any additional questions and then verbalized understanding. Patient advised to call surgeon office or pre surgery nurse liaison [phone] if any additional questions.
--- NOTE | 2023-03-05 10:20 | WPDHPUPDATE1 ---
History and Physical Update Update Date/Time: 03/05/23 10:20 History and Physical has been reviewed, including an updated exam of the patient. There are NO changes in the patient's condition. Risks, benefits, and alternatives have been discussed and questions answered. Patient agrees to proceed with right Bartholin's gland excision and right labial mass removal?(likely skin tag) in the OR..
[2023-03-05 10:28] VITALS: BP 138/86; PULSE 72; RESP 14; TEMP 36.5; O2SAT 100
--- NOTE | 2023-03-05 10:33 | WPDANESEPPF ---
Anes - Initial Pre Proc Eval Procedure: Operation Date: 03/05/23 13:00 Proposed Procedures p Right Bartholin Gland Removal, Right Labial Mass Removal - Dina Mandujano MD Date/Time: 03/05/23 10:33 Surgeon: Dina Mandujano MD Pre Op Diagnosis: Rt Mckayla Gland Cyst, Right Labial Mass Patient Data Age: 57 Gender: F Height: 1.57 m Weight: 60.5 kg Allergies Allergy/AdvReac Type Severity Reaction Status Date / Time bupropion [From Wellbutrin] Allergy Severe Seizure Verified 02/27/23 13:55 levetiracetam [From Keppra] AdvReac Intermediate Confusion Verified 02/27/23 13:55 Home Medications Medication Instructions Recorded Confirmed Type ondansetron HCl 4 mg tablet 4 mg PO Q8H PRN nausea and 06/02/20 02/27/23 Rx vomiting #20 tabs dicyclomine 20 mg tablet 20 mg PO BID PRN Diarrhea 02/27/23 02/27/23 History divalproex 250 mg tablet,delayed 250 mg PO BID 02/27/23 02/27/23 History release divalproex 500 mg tablet,delayed 500 mg PO HS 02/27/23 02/27/23 History release fluoxetine 10 mg capsule 10 mg PO DAILY 02/27/23 02/27/23 History fluoxetine 40 mg capsule 40 mg PO DAILY 02/27/23 02/27/23 History losartan 100 mg tablet 100 mg PO DAILY 02/27/23 02/27/23 History Patient hx anesthesia problems: none Family hx anesthesia problems: none Results Review: All pre-operative results and documents have been reviewed as part of the pre-operative evaluation. [facility] Past Medical History Medical History Anxiety Bipolar disorder The patient reports that she has been told that she may have bipolar disorder GERD (gastroesophageal reflux disease) Hypertension Seizure disorder Stage III chronic kidney disease Surgical History Surgical History H/O gastric bypass 1998 History of History of tubal ligation Family History Family History Mother Pancreatitis, recurrent, Onset Age: 40 eventually required enzyme support w/ meals Hypertension Alzheimer's disease with early onset, Onset Age: 48 Father Hypertension Chronic kidney disease (CKD) Social History Social History (Updated 02/06/23 @ 14:03 by Luanne Magallanes MA) Smoking status: Never smoker Second hand tobacco smoke exposure: Yes Alcohol intake: never Drinks per week: 0 Alcohol use details: rarely, last drink 3 years ago Substance use: current Substance use type: other Other substance usage details: CBD for anxiety occasionally Lack of Transportation: YES Lack of Food: Sometimes True Current Housing: I Have Housing Concerned About Future Housing: No Difficulty Paying Gas/Electric Bills: No Difficulty Paying for Meds: No Education: Associate Degree Difficulty w/ Childcare or Family Care: No Living arrangements: with family Occupation/Education: unemployed Gender identity (if verbalized by the patient): Female Sexual Orientation (if Verbalized by the Patient): Straight or Heterosexual Spiritual care concerns: No Anes - Eval Final PreProcedure Day of Procedure 03/05/23 10:33 Patient weight: normal Heart: regular rate and rhythm Lungs: clear to auscultation Airway: Mallampati scale class II Neurological: alert and oriented Last oral intake: >/= 8 hours ASA classification: III Emergent: no Anesthetic plan: proceed Anesthesia type and monitoring: general GIVS and standard monitoring Results Review: All pre-operative results and documents have been reviewed as part of the pre-operative evaluation. Informed Consent: The patient's anesthetic plan and its attendant risks and benefits were discussed with the patient/family/POA. Questions were solicited and answers provided to the satisfaction of the patient/family/POA.
[2023-03-05] MEDS: LACTATED RINGERS 1,000 ML 30 ML IV CONT (10:34)
[2023-03-05] MEDS: LIDO 1%/EPINEPHRINE 1:100,000 20 ML VIAL 10 ML INFILTRATE (10:52)
--- NOTE | 2023-03-05 11:51 | W.PM.PROC2 ---
Procedure Note - Detailed Date of Procedure 03/05/23 Pre-op Diagnosis Rt Mckayla Gland Cyst, Right Labial Mass Post-op Diagnosis Same Procedure Performed Right Bartholin's gland excision and right labial mass excision Surgeon Dina Mandujano MD Anesthesia MAC and Local (4cc of lidocaine with epi) Findings 2cm right Bartholin's gland cyst removed. Right labial majora mass ~ 1cm likely skin tag; removed w/o issue. Good hemostasis at end of case. Description of Procedure Shanda was taken to the operating room where she was placed under sedation without complications. She was then prepped and draped in the usual sterile fashion in the dorsal lithotomy position with her legs in low Pineda stirrups. A time-out was performed and no perioperative antibiotics were indicated. The right Bartholin's gland was palpated and a kirby shape skin incision was made in the overlying tissue. The gland was identified and dissected out using tension, counter traction, and Metzenbaum scissors. The gland was excised without issue. Small blood vessels were coagulated using Bovie cautery. The area was infiltrated with lidocaine with epinephrine. The defect was reapproximated using 2-0 Vicryl filling the space and causing good hemostasis. The skin was then reapproximated with 3-0 Vicryl in the normal fashion. The right labial majora mass was infiltrated with local anesthesia with epi. The mass (appeared to be a skin tag) was elevated and cut from it's base using the Metzenbaum scissors. A single U-stitch using 3-0 Vicryl was used to reapproximate the edges and good hemostasis was noted. All instruments were removed from the surgical field. Sponge, lap, instrument, and needle counts were correct at the end of the procedure. Patient was awoken from anesthesia and taken to recovery with plans of same-day discharge home. Estimated Blood Loss 20 IV Fluids 1,400 Pathology Yes (right Bartholin's gland and right labial mass) Complications No immediate complications Condition Stable Disposition Same day [facility] Billing Surgery - Charge Forward: Surgery Billing
[2023-03-05 11:52] VITALS: BP 106/79; PULSE 90; RESP 16; O2SAT 99
[2023-03-05] MEDS: oxyCODONE HCL (*CRX) 5 MG TAB IR PO (12:03)
[2023-03-05] MEDS: clonazePAM (*CRX) 0.5 MG TABLET PO (12:19)
[2023-03-05 12:21] VITALS: BP 149/53; PULSE 80; RESP 18
[2023-03-05 12:44] VITALS: BP 139/84; RESP 18
== END 2023-03-05 12:54 | disposition home or self-care (01) ==
PROVIDERS: PCP Family Medicine; Visit Provider Obstetrics & Gynecology
PROC: (CPT 56440; principal; 2023-03-05 13:00)
DX: N75.0 Cyst of Bartholin's gland (principal); D28.0 Benign neoplasm of vulva; F41.9 Anxiety disorder, unspecified; G40.909 Epilepsy, unspecified, not intractable, without status epilepticus; I12.9 Hypertensive chronic kidney disease with stage 1 through stage 4 chronic kidney disease, or unspecified chronic kidney disease; N18.30 Chronic kidney disease, stage 3 unspecified; Z79.899 Other long term (current) drug therapy; Z98.84 Bariatric surgery status
CPT/HCPCS: 56740; 11421; 88304; 88305; A9270; J1100; J2250; J2405; J2704; J3010; J7120

== ENCOUNTER 2023-10-01 09:54 | Emergency (ER) | payer OTHER, SELFPAY ==
--- NOTE | 2023-10-01 10:17 | ED.DENTAL ---
HPI - Dental/Oral General Chief complaint: Dental/Oral Stated complaint: toothache Time Seen by Provider: 10/01/23 10:30 Mode of arrival: ambulatory Limitations: no limitations History of Present Illness HPI Narrative: 58 year old female presents with concern for left upper dental pain. Reports she began having pain in that area about 5-6 days ago then 4 days ago she lost a filling in the tooth in that area. Reports the pain has been worsening since then. She is between dentist. She has stage III kidney failure and cannot take NSAIDs. She denies fever, headache, problems swallowing. She also reports a rash on her hands for which her primary care doctor is managing with oral steroids and steroid cream, she is looking for a 2nd opinion about the rash. MD Complaint: tooth pain Related Data Home Medications Medication Instructions Recorded Confirmed amlodipine 5 mg tablet 5 mg PO DAILY 10/01/23 10/01/23 dicyclomine 20 mg tablet 20 mg PO QID PRN Spasms 10/01/23 10/01/23 divalproex 500 mg tablet,delayed 500 mg PO HS 10/01/23 10/01/23 release estradiol 0.01% (0.1 mg/gram) 1 applic vaginal WEEKLY 10/01/23 10/01/23 vaginal cream fluoxetine 10 mg capsule 40 mg PO DAILY 10/01/23 10/01/23 fluoxetine 40 mg capsule 10 mg PO DAILY 10/01/23 10/01/23 losartan 100 mg tablet 100 mg PO DAILY 10/01/23 10/01/23 Allergies Allergy/AdvReac Type Severity Reaction Status Date / Time bupropion [From Wellbutrin] Allergy Severe Seizure Verified 10/01/23 09:57 levetiracetam [From Keppra] AdvReac Intermediate Confusion Verified 10/01/23 09:57 Review of Systems Review of Systems: CONSTITUTIONAL: Denies malaise, chills, sweats, or fever. EYES: Denies visual changes ENT: Denies rhinorrhea, congestion, sinus pain, otalgia or sore throat. Reports left upper dental pain CARDIOVASCULAR: Denies chest pain, palpitations RESPIRATORY: Denies cough or dyspnea. SKIN: Reports a rash on her hands MUSCULOSKELETAL: Denies myalgia. NEUROLOGIC: Denies numbness, weakness, or headache. All systems reviewed & are unremarkable except as noted in HPI and below PMFSH Past Medical History Medical History Anxiety Bipolar disorder The patient reports that she has been told that she may have bipolar disorder GERD (gastroesophageal reflux disease) Hypertension Seizure disorder Stage III chronic kidney disease Surgical History Surgical History H/O gastric bypass 1998 History of History of gynecologic surgery Rt Mckayla Gland Cyst, Right Labial Mass 03/05/2023 History of tubal ligation Family History Family History Mother Pancreatitis, recurrent, Onset Age: 40 eventually required enzyme support w/ meals Hypertension Alzheimer's disease with early onset, Onset Age: 48 Father Hypertension Chronic kidney disease (CKD) Social History Social History Smoking status: Never smoker Second hand tobacco smoke exposure: Yes Alcohol intake: never Drinks per week: 0 Alcohol use details: rarely, last drink 3 years ago Substance use: current Substance use type: other Other substance usage details: CBD for anxiety occasionally Lack of Transportation: YES Lack of Food: Sometimes True Current Housing: I Have Housing Concerned About Future Housing: No Difficulty Paying Gas/Electric Bills: No Difficulty Paying for Meds: No Education: Associate Degree Difficulty w/ Childcare or Family Care: No Living arrangements: with family Occupation/Education: unemployed Gender identity (if verbalized by the patient): Female Sexual Orientation (if Verbalized by the Patient): Straight or Heterosexual Spiritual care concerns: No Comments At time of signature, agree with nursing past medical, surgical, social and fam
[2023-10-01 10:20] VITALS: BP 162/93; PULSE 68; RESP 18; TEMP 36.7; O2SAT 100
== END 2023-10-01 10:55 | disposition home or self-care (01) ==
PROVIDERS: Emergency Provider Nurse Practitioner; PCP Family Medicine
DX: K08.89 Other specified disorders of teeth and supporting structures (principal); K21.9 Gastro-esophageal reflux disease without esophagitis; I12.9 Hypertensive chronic kidney disease with stage 1 through stage 4 chronic kidney disease, or unspecified chronic kidney disease; N18.30 Chronic kidney disease, stage 3 unspecified; G40.909 Epilepsy, unspecified, not intractable, without status epilepticus; F41.9 Anxiety disorder, unspecified; Z98.84 Bariatric surgery status
CPT/HCPCS: 99213; G0463

== ENCOUNTER 2024-06-21 14:29 | Emergency (ER) | payer OTHER, SELFPAY ==
[2024-06-21 14:31] VITALS: BP 153/119; PULSE 80; RESP 16; TEMP 36.2; O2SAT 100
--- NOTE | 2024-06-21 16:35 | ED.GENADULT ---
HPI - General Adult General Chief complaint: Unspecified Stated complaint: left hand problem Time Seen by Provider: 06/21/24 15:48 History of Present Illness HPI narrative: Patient is a 59-year-old female who presents ER with left wrist pain. Slipped and fell striking the volar aspect of the left wrist on the ground. Maintains range of motion. Has tingling going into her fingers the hand and rating up towards her armpit. She has had pain like that in the past while sleeping but is more prominent after striking her wrist. Has history of old fracture. Patient also reports that she learned that she is going to lose her insurance and would like to try to schedule surgery for her carpal tunnel. Related Data Home Medications ?Medication ?Instructions ?Recorded ?Confirmed ?Last Taken ?Type amlodipine 5 mg tablet 5 mg PO DAILY 10/01/23 05/20/24 Unknown History divalproex 500 mg tablet,delayed 500 mg PO HS 10/01/23 05/20/24 Unknown History release fluoxetine 40 mg capsule 10 mg PO DAILY 10/01/23 05/20/24 Unknown History losartan 100 mg tablet 100 mg PO DAILY 10/01/23 05/20/24 Unknown History ascorbate calcium (vitamin C) 500 500 mg PO DAILY 02/21/24 05/20/24 Unknown History mg tablet cholecalciferol (vitamin D3) 10 10 mcg PO DAILY 02/21/24 05/20/24 Unknown History mcg (400 unit) capsule hydrocodone 7.5 mg-acetaminophen tablet PO 02/21/24 05/20/24 Unknown History 325 mg tablet aripiprazole 5 mg tablet mg PO 05/20/24 05/20/24 Unknown History clonazepam 0.5 mg tablet mg PO 05/20/24 05/20/24 Unknown History fluoxetine 20 mg capsule mg PO 05/20/24 05/20/24 Unknown History Allergies Allergy/AdvReac Type Severity Reaction Status Date / Time bupropion (From Wellbutrin) Allergy Severe Seizure Verified 06/21/24 14:34 levetiracetam (From Keppra) AdvReac Intermediate Confusion Verified 06/21/24 14:34 prazosin AdvReac Intermediate Other Verified 06/21/24 14:34 Review of Systems Constitutional: Constitutional: Reports no additional constitutional complaints Musculoskeletal: Musculoskeletal: Reports no additional musculoskeletal complaints [facility] Past Medical History Medical History (Updated 06/21/24 @ 16:41 by Rai Andrews MD) PTSD (post-traumatic stress disorder) Herpesvirus 2 Bipolar disorder The patient reports that she has been told that she may have bipolar disorder Seizure disorder GERD (gastroesophageal reflux disease) Hypertension Stage III chronic kidney disease Anxiety Surgical History Surgical History History of gynecologic surgery Rt Mckayla Gland Cyst, Right Labial Mass 03/05/2023 History of tubal ligation History of H/O gastric bypass 1998 Family History Family History (Updated 05/20/24 @ 10:51 by Hermilo Vivar MA) Mother Pancreatitis, recurrent, Onset Age: 40 eventually required enzyme support w/ meals Hypertension Alzheimer's disease with early onset, Onset Age: 48 Father Hypertension Chronic kidney disease (CKD) Sibling Cerebrovascular accident Social History Social History (Updated 05/20/24 @ 10:52 by Hermilo Vivar MA) Smoking status: Never smoker Second hand tobacco smoke exposure: Yes Alcohol intake: never Drinks per week: 0 Alcohol use details: rarely, last drink 3 years ago Substance use: current Substance use type: marijuana Other substance usage details: CBD for anxiety occasionally Do You Feel Safe in your Home?: Yes Lack of Transportation: YES Lack of Food: Often True Current Housing: I Have Housing Concerned About Future Housing: No Difficulty Paying Gas/Electric Bills: YES Difficulty Paying for Meds: No Currently Unemployed: YES Education: Bachelor's Degree Difficulty w/ Childcare or Family Care: No Living arrangements: with family Occupation/Education: unemployed Gender identity (if verbalized by the patient): Female Sexual Orientation (if Verbalized by the Patient): Straight or Heterosexual Spiritual care concerns: No Exam Narrative: GENERAL: Well-appearing, well-nourished, and in no acute distress. HEAD: Normocephalic, atraumatic. CHEST: Clear to auscultation. No respiratory distress. HEART: Regular rate and rhythm. Normal peripheral pulses. EXTREMITIES: Normal range of motion. No edema. Positive carpal tunnel compression test on left side. No bony tenderness over the wrist. SKIN: Warm, dry, no rash. NEURO: Alert and oriented x3. PSYCH: Normal mood and affect. Course Course Emergency Course: Patient informed of imaging results. Discussed treatment plan with a cock-up wrist splint that she has at home. She would like to try to be scheduled for carpal tunnel surgery with discussed that is not will redo through the ER by happy to refer her to an orthopedic surgeon. She walked out the ER before receiving discharge paperwork. Vital Signs Vital signs: Vital Signs Temperature 97.2 F L 06/21/24 14:31 Pulse Rate 80 06/21/24 14:31 Respiratory Rate 16 06/21/24 14:31 Blood Pressure 153/119 H 06/21/24 14:31 Pulse Oximetry 100 06/21/24 14:31 Temperature 97.2 F L 06/21/24 14:31 Pulse Rate 80 06/21/24 14:31 Respiratory Rate 16 06/21/24 14:31 Blood Pressure 153/119 H 06/21/24 14:31 Pulse Oximetry 100 06/21/24 14:31 Medical Decision Making Vital Signs Vital Signs: Vital Signs Temperature 97.2 F L 06/21/24 14:31 Pulse Rate 80 06/21/24 14:31 Respiratory Rate 16 06/21/24 14:31 Blood Pressure 153/119 H 06/21/24 14:31 Pulse Oximetry 100 06/21/24 14:31 Temperature 97.2 F L 06/21/24 14:31 Pulse Rate 80 06/21/24 14:31 Respiratory Rate 16 06/21/24 14:31 Blood Pressure 153/119 H 06/21/24 14:31 Pulse Oximetry 100 06/21/24 14:31 Imaging Data Radiologist's impression: ITS Impressions Wrist X-Ray 06/21/24 15:12 IMPRESSION: Longitudinal Lucency seen in the distal radius. Follow-up advised. Otherwise, No definite acute osseous abnormality left wrist. Discharge Plan Discharge Clinical Impression: Carpal tunnel syndrome Patient Disposition: Home, Self-Care Condition: Stable Instructions: Antibiotic Form Patient Language: Irish Prescriptions: No Action fluoxetine 40 mg capsule 10 mg PO DAILY amlodipine 5 mg tablet 5 mg PO DAILY divalproex 500 mg tablet,delayed release (DR/EC) 500 mg PO HS losartan 100 mg tablet 100 mg PO DAILY aripiprazole 5 mg tablet PO fluoxetine 20 mg capsule PO clonazepam 0.5 mg tablet PO cephalexin 250 mg capsule 250 mg PO DAILY Qty: 90 0RF hydrocodone-acetaminophen 7.5-325 mg tablet PO ascorbate calcium (vitamin C) 500 mg tablet 500 mg PO DAILY cholecalciferol (vitamin D3) 10 mcg (400 unit) capsule 10 mcg PO DAILY estradiol 0.01 % (0.1 mg/gram) cream 1 g VAGINAL 2XW Qty: 42.5 3RF gabapentin 100 mg capsule 100 mg PO TID Qty: 120 2RF Follow-up/Referrals: Logan,Aleks Cain, CORRESPONDENCE TRANSCRIBER [Primary Care Provider] -
== END 2024-06-21 16:51 | disposition home or self-care (01) ==
PROVIDERS: Emergency Provider Emergency Medicine; PCP Nurse Practitioner Family
DX: G56.02 Carpal tunnel syndrome, left upper limb (principal); K21.9 Gastro-esophageal reflux disease without esophagitis; G40.909 Epilepsy, unspecified, not intractable, without status epilepticus; I12.9 Hypertensive chronic kidney disease with stage 1 through stage 4 chronic kidney disease, or unspecified chronic kidney disease; N18.30 Chronic kidney disease, stage 3 unspecified; F41.9 Anxiety disorder, unspecified; F31.9 Bipolar disorder, unspecified; F43.10 Post-traumatic stress disorder, unspecified; Z98.84 Bariatric surgery status; Z79.899 Other long term (current) drug therapy; W01.0XXA Fall on same level from slipping, tripping and stumbling without subsequent striking against object, initial encounter
CPT/HCPCS: 73110; 99283

== ENCOUNTER 2025-03-04 21:31 | Observation (INO) | payer MEDICARE, MEDICAID, SELFPAY ==
--- NOTE | ~2025-03-04 | CT_ITS ---
REFERENCE: [None available.] TECHNIQUE: Axial mm images of the head and neck were obtained without and with infusion of contrast dose of intravenous contrast. Postcontrast 1.25 mm axial images were then obtained. On an independent workstation, 0.625 mm axial images were utilized to render MIP and MPR images of the intracranial circulation. CTA NECK: The aortic arch demonstrates normal caliber and patency. Normal branching pattern is noted of the supraaortic vessels. The origins of the supraaortic vessels are widely patent.. The common carotid and cervical segments of the ICA and ECA demonstrate normal caliber and patency. The vertebral arteries are symmetric in size, demonstrating normal patency. CTA HEAD: Focal thrombus within the right M1 segment causes focal severe stenosis. There is flow seen beyond this point. The intracranial ICA, MODE, and left MCA demonstrate normal caliber and patency. No hemodynamically significant stenosis or aneurysm is identified. The distal vertebral, basilar, and bilateral posterior cerebral arteries demonstrate normal caliber and patency. The superior cerebellar arteries are also widely patent. NONVASCULAR FINDINGS: The soft tissue of the neck is unremarkable. No mass or pathologic enhancement is noted. There is no pathologically enlarged lymphadenopathy. The airway is patent. No acute intracranial hemorrhage, mass, or extraaxial fluid collections are noted. Generalized atrophy and chronic white matter microangiopathic changes. Ventricular size is normal. The skull is intact. The visualized mastoid air cells and sinuses are clear. There is no pathologic enhancement. IMPRESSION: There is a thrombus within the right M1 segment causing focal severe stenosis. Otherwise, no hemodynamically significant stenosis elsewhere. There is generalized atrophy and chronic white matter microangiopathic changes. Reviewed, dictated and finalized at location S. RITIES AND REAL ESTATE DIRECTOR
--- NOTE | ~2025-03-04 | XR_ITS ---
XR chest 2V HOSTORY: chest pressure, high BP COMPARISON:[ None] FINDINGS: Frontal and lateral views of the chest were obtained. The lungs are clear. The heart size is normal in size. Pulmonary vasculature is unremarkable. Osseous structures are intact. IMPRESSION: No acute lung findings.] [ ] Reviewed, dictated and finalized at location S. HELPER PASTRY
--- NOTE | ~2025-03-04 | CT_ITS ---
CTA chest abdomen pelvis HISTORY:CP; BP 200s/100s; r/o dissection . COMPARISON: None. TECHNIQUE Following the noncontrasted automatic operator, axial images of the thorax, abdomen and pelvis were obtained following infusion of [100] cc of Isovue 370. Post-processing on an independent workstation was performed to reconstruct MIP images for evaluation of the aortic vasculature. Dose lowering technique and dose optimization was utilized. FINDINGS: CTA CHEST: [The ascending and descending thoracic aorta are normal in caliber and patency. No dissection is evident.] The aortic arch demonstrates normal branching pattern. The origins of the supra aortic vessels are patent. The pulmonary arteries demonstrate normal patency. CTA ABDOMEN AND PELVIS: [The abdominal aorta, visceral vessels and renal arteries demonstrate no hemodynamically significant stenosis. No aneurysm is identified.] [The iliac and visualized femoral vessels are widely patent. No aneurysm or hemodynamically significant stenosis is noted. ] NONVASCULAR FINDINGS: [The lungs are clear.] [No pathologically enlarged mediastinal adenopathy is evident.] There is fatty infiltration of the liver. [No intrahepatic mass or ductal dilatation is evident.] [The gallbladder is unremarkable.] [The pancreas and spleen are normal in appearance.] [The adrenal glands are symmetric in size.] [The kidneys are unremarkable.] [ No intrarenal stones are noted.] [ There is no hydronephrosis.] [ ] [The stomach and bowel loops are unremarkable.] [The bladder and rectum are normal in appearance.] [ ] [ No free fluid or air is evident.] [There is no abdominal or pelvic lymphadenopathy.] [The thoracic and lumbar spines are unremarkable.] [The [No osseous lesion is identified.] IMPRESSION: 1. [No thoracic or abdominal aortic aneurysm is evident. There is no dissection.] 2. [No acute abnormality is noted in the chest, abdomen and pelvis.] Reviewed, dictated and finalized at location S. ATION PLANT OPERATOR IMPRESSION: 1. [No thoracic or abdominal aortic aneurysm is evident. There is no dissecti on.] 2. [No acute abnormality is noted in the chest, abdomen and pelvis.]
--- NOTE | ~2025-03-04 | MR_ITS ---
EXAM/PROCEDURE: MR brain/brain stem wo/w con HISTORY: Headache, dizziness; blurred vision COMPARISON: CT angiogram brain March 04 TECHNIQUE: Pre and postcontrast IV contrast enhanced of the brain performed. FINDINGS: No restricted diffusion or acute ischemic event. Vascular flow voids at the skull base are patent. No intracranial mass, mass effect or hemorrhage. Edwards-white signal pattern preserved. Mild periventricular T2 weighted hyperintense white matter changes noted. Brainstem and cerebellum appear normal. On the contrast series, no post enhancement pathology or lesions identified. IMPRESSION: No acute ischemic ischemic event, mass or hemorrhage. No abnormal enhancing lesions. Mild chronic microvascular ischemic appearing white matter changes. Reviewed, dictated and finalized at location A. HANDLER IMPRESSION: No acute ischemic ischemic event, mass or hemorrhage. No abnormal enhancing les ions. Mild chronic microvascular ischemic appearing white matter changes.
[2025-03-04 21:15] VITALS: BP 213/123; PULSE 95; RESP 16; TEMP 36.8; O2SAT 99
[2025-03-04 21:26] VITALS: PULSE 96
[2025-03-04 21:27] VITALS: O2SAT 99
--- NOTE | 2025-03-04 21:37 | ECG_ITS ---
Test Date: 2025-03-04 21:43:47 Measurements Intervals [place] Rate: 81 P: 21 [place]: 151 QRS: -1 QRSD: 93 T: 0 QT: 369 QTc: 430 Interpretive Statements SINUS ARRHYTHMIA VOLTAGE CRITERIA FOR LVH, CONSIDER NORMAL VARIANT Electronically Signed On 03-04-2025 22:36:01 SOLUTIONS DELIVERY CONSULTANT by Edilberto Renee D.O
[2025-03-04 21:45] LABS: Hematocrit 36.4 % (37.0-47.0); Hemoglobin 11.9 g/dL (12.0-15.0); Immature Granulocyte Percent A 0.3 % (0-0.5); Lymphocytes Absolute Auto 3.10 K/mm3 (0.9-3.2); Mean Corpuscular HGB Conc 32.7 g/dl (32-36); Mean Corpuscular Hemoglobin 26.0 pg (26-34); Mean Corpuscular Volume 79.6 fl (80-100); Nucleated Red Blood Cells Absolute Auto 0.000 K/mm3 (0.0-0.012); Nucleated Red Blood Cells Perc 0.0 % (0.0-0.2); Platelet Count Result 325 k/mm3 (150-375); Red Blood Count 4.57 M/mm3 (4.2-5.4); White Blood Count 10.0 K/mm3 (4.5-10.0)
[2025-03-04 21:56] LABS: INR 1.0; Prothrombin Time 13.2 Seconds (11.1-14.7)
[2025-03-04 21:57] LABS: Partial Thromboplastin Time 31.6 Seconds (22.3-36.8)
[2025-03-04 22:05] LABS: Alanine Aminotransferase 34 U/L (6-35); Albumin Level 4.8 g/dL (3.5-5.1); Alkaline Phosphatase 157 U/L (38-126); Anion Gap 13 mmol/L (4-12); Aspartate Amino Transferase 28 U/L (14-36); Bilirubin,Total 0.7 mg/dL (0.2-1.3); Blood Urea Nitrogen 23 mg/dL (7-17); Calcium 9.5 mg/dL (8.4-10.2); Carbon Dioxide 19 mmol/L (22-30); Chloride 102 mmol/L (98-107); Estimated CRCL calculation 30 ml/min; Estimated Glomerular Filt Rate 30; Glucose 111 mg/dL (65-110); Lipase 75 U/L (23-300); Potassium 4.3 mmol/L (3.4-5.0); Sodium 134 mmol/L (137-145); Total Protein 8.4 g/dL (6.3-8.2)
[2025-03-04 22:16] LABS: Troponin I 0.014 ng/mL (0.000-0.034)
--- NOTE | 2025-03-04 22:40 | ED.GENADULT ---
HPI - General Adult General Chief complaint: Chest Pain Stated complaint: chest pain Time Seen by Provider: 03/04/25 21:42 Source: patient and RN notes reviewed Mode of arrival: EMS Limitations: no limitations History of Present Illness HPI narrative: Patient presents with report of elevated BP as well as left sided jaw and neck pain and a headache and dizzyness as well as blurred vision. Symptoms started at 18:05. BP was 177/123 at home. Was also having chest pain which has since resolved. Also had been short of breath, better now She is anxious. Has a brother who last year of BP complications and cerebral aneurysm. It was his birthday yesterday. Not on anticoagulation. She does have bilateral numbness in feet and hands but reports history of neuropathy. Her toes also hurt. Blood glucose 111. EMS administered 5mg hydralazine given BP 258/146. Reportedly called medical control - believe metoprolol might have also been given though unsure. Headache 06/30 at the time of my exam, mild posterior and temporal pain bilaterally. She notes abdominal muscle cramps at the LUQ and also in her feet. She reports being nearsighted. 2 days ago she drank alcohol and is very concerned she caused these symptoms. History of anxiety, depression, and CKD Stage 3. Uses cannabis recreationally. History of previous Vicodin addiction; reports > 6 mos since last use. She has been diagnosed with HTN since 1991 and is on amlodipine 5mg and 100 losartan; had taken each of these and took an extra dose of both when BP was high at home. Related Data Home Medications ?Medication ?Instructions ?Recorded ?Confirmed ?Last Taken ?Type divalproex 500 mg tablet,delayed 500 mg PO HS 10/01/23 03/05/25 03/04/25 19:00 History release 500 mg fluoxetine 40 mg capsule 10 mg PO DAILY 10/01/23 03/05/25 03/04/25 08:22 History 10 mg losartan 100 mg tablet 100 mg PO DAILY 10/01/23 03/05/25 03/04/25 19:00 History 100 mg ascorbate calcium (vitamin C) 500 500 mg PO DAILY 02/21/24 03/05/25 Unknown History mg tablet cholecalciferol (vitamin D3) 10 10 mcg PO DAILY 02/21/24 03/05/25 Unknown History mcg (400 unit) capsule clonazepam 0.5 mg tablet 0.5 mg PO PRN PRN anxiety 05/20/24 03/05/25 Unknown History lorazepam 0.5 mg tablet (Ativan) 0.5 mg PO TID PRN anxiety 03/05/25 03/05/25 02/26/25 08:00 History 0.5 mg Allergies Allergy/AdvReac Type Severity Reaction Status Date / Time bupropion (From Wellbutrin) Allergy Severe Seizure Verified 03/05/25 02:35 levetiracetam (From Keppra) AdvReac Intermediate Confusion Verified 03/05/25 02:35 prazosin AdvReac Intermediate Other Verified 03/05/25 02:35 [facility] Past Medical History Medical History (Updated 03/08/25 @ 02:37 by Nehal Madrid MD) Narcotic abuse in remission PTSD (post-traumatic stress disorder) Herpesvirus 2 Bipolar disorder The patient reports that she has been told that she may have bipolar disorder Seizure disorder GERD (gastroesophageal reflux disease) Hypertension diagnosed 1991 Stage III chronic kidney disease Anxiety Surgical History Surgical History History of gynecologic surgery Rt Mckayla Gland Cyst, Right Labial Mass 03/05/2023 History of tubal ligation History of H/O gastric bypass 1998 Family History Family History Mother Pancreatitis, recurrent, Onset Age: 40 eventually required enzyme support w/ meals Hypertension Alzheimer's disease with early onset, Onset Age: 48 Father Hypertension Chronic kidney disease (CKD) Sibling Cerebrovascular accident Social History Social History (Updated 03/08/25 @ 02:38 by Nehal Madrid MD) Social History: Has a son Smoking status: Never smoker Second hand tobacco smoke exposure: Yes Alcohol intake: current Drinks per week: 0 Alcohol use details: rarely, last drink 3 years ago Substance use: current Substance use type: marijuana Other substance usage details: CBD for anxiety occasionally last use 03/04/25; former Vicodin addition Last use: last use approx 08/2024 Do You Feel Safe in your Home?: Yes Lack of Transportation: YES Lack of Food: Often True Current Housing: I Have Housing Concerned About Future Housing: No Difficulty Paying Gas/Electric Bills: No Difficulty Paying for Meds: No Currently Unemployed: No Education: Bachelor's Degree Difficulty w/ Childcare or Family Care: No Living arrangements: alone Occupation/Education: unemployed Gender identity (if verbalized by the patient): Female Sexual Orientation (if Verbalized by the Patient): Straight or Heterosexual Spiritual care concerns: No Exam Narrative: GENERAL: well-nourished, HEAD: Normocephalic, atraumatic. EYES: Non injected, non icteric. No gaze palsy. EOMI horizontal w/o nystagmus or palsy. Visual peripheral pozo intact. ENT: Nares clear, no rhinorrhea or epistaxis. Gross auditory acuity intact. NECK: Supple. No meningismus. CHEST: Speaking in full sentences. No respiratory distress. HEART: Regular rate and rhythm. . ABDOMEN: Soft, nondistended. No rigidity or guarding. Not peritoneal EXTREMITIES: Normal range of motion. No lower extremity edema. SKIN: Warm, dry, no rash. NEURO: No focal deficits. Alert and oriented. Answering questions. Following commands. Normal speech without aphasia or dysarthria. No cerebellar ataxia on [id number]. No extinction. PSYCH:Congruent mood and affect. Anxious. Course Vital Signs Vital signs: Vital Signs Temperature 98.2 F 03/04/25 21:15 Pulse Rate 95 03/04/25 21:15 Respiratory Rate 16 03/04/25 21:15 Blood Pressure 213/123 H 03/04/25 21:15 Pulse Oximetry 99 03/04/25 21:15 Oxygen Delivery Room Air 03/04/25 21:15 Temperature 97.9 F 03/05/25 12:00 Pulse Rate 63 03/05/25 14:00 Respiratory Rate 16 03/05/25 12:00 Blood Pressure 154/98 H 03/05/25 12:00 Pulse Oximetry 98 03/05/25 12:00 Oxygen Delivery Room Air 03/05/25 02:59 Medical Decision Making MDM Narrative Medical decision making narrative: Patient presents with report of elevated BP associated with left jaw/neck pain, headache, dizziness, and blurred vision. Also was having CP and SOB which have resolved. BP 177/123 at home so she took an extra dose of her home 5mg amlodipine and 100mg losartan. EMS noted BP 258/146. Administered 5mg hydralazine. Possibly also administered metoprolol. In the emergency department she is afebrile with vital signs notable for hypertension. 10 mg IV labetalol ordered though patient is already in the CT scan at the time of order. If goal of reduction is by no more than 25% over the first 24 hours, based on 213/123 (MAP 153mmHg) then the goal SBP is no less than 160mmHg and goal MAP no less than 115mmHg. Microcytic anemia, stable from previous. Isolated ALT elevation, new. Creatinine is essentially unchanged from baseline CKD. Will give 1 L IV fluids for renal protection however. Initial troponin within normal limits. CTA chest abdomen pelvis w/o evidence dissection. CTA brain as below. Consideration of permissive hypertension however will need to continue to lower BP to acceptable goals. LKW: 1805, now >5 hours since symptoms began. NIHSS: 0 Repeat BP after labetalol 149/102 (MAP 118). UDS positive for cannabinoids. Remains very anxious, Valium ordered 2.5mg IVP. Spoke with [facility] physical therapy coordinator/patient logistics and Discussed with [facility] Stroke team Dr Dupree at 11:58pm. Happy to transfer and be admitting physician if needed but would be a Non critical transfer; needs BP control. Needs follow up with neurovascular but this can be done in the outpatient setting. Can be more aggressive with BP control if desired for this age group and this likely to be atherosclerosis. If things change, reach out again. Patient's BP remains well controlled 146/90 (MAP 107) Discussed with operation supervisor hospitalist Dr Padron. Will be admitting to Treat for HTN, ? neurologic event. Will be in the IMU. Had been unable to reach operation supervisor neurologist Dr Barrett. Will place order for Dr Jacobsen as he will be operation supervisor today, 03/05/25. MRI ordered. Differential Diagnosis Differential Diagnosis: Aortic dissection carotid artery dissection intracranial hemorrhage CVA/TIA, hypertensive emergency; PRES Vital Signs Vital Signs: Vital Signs Temperature 98.2 F 03/04/25 21:15 Pulse Rate 95 03/04/25 21:15 Respiratory Rate 16 03/04/25 21:15 Blood Pressure 213/123 H 03/04/25 21:15 Pulse Oximetry 99 03/04/25 21:15 Oxygen Delivery Room Air 03/04/25 21:15 Temperature 97.9 F 03/05/25 12:00 Pulse Rate 63 03/05/25 14:00 Respiratory Rate 16 03/05/25 12:00 Blood Pressure 154/98 H 03/05/25 12:00 Pulse Oximetry 98 03/05/25 12:00 Oxygen Delivery Room Air 03/05/25 02:59 Lab Data 03/04/25 21:39 03/04/25 21:39 Labs: Lab Results 03/04/25 03/04/25 03/05/25 Range/Units 21:39 22:58 00:45 WBC 10.0 (4.5-10.0) K/mm3 RBC 4.57 (4.2-5.4) M/mm3 Hgb 11.9 L (12.0-15.0) g/dL Hct 36.4 L (37.0-47.0) % MCV 79.6 L (80-100) fl MCH 26.0 (26-34) pg MCHC 32.7 (32-36) g/dl RDW 15.0 H (11.5-14.5) % Plt Count 325 (150-375) k/mm3 MPV 9.9 (7.4-10.4) fl Immature Gran % (Auto) 0.3 (0-0.5) % Neut % (Auto) 59.0 (45.5-73.1) % Lymph % (Auto) 31.1 (18.3-44.2) % Wirt % (Auto) 8.2 (2.6-8.5) % Eos % (Auto) 1.0 (0-4.4) % Baso % (Auto) 0.4 (0.2-1.2) % Lymph # (Auto) 3.10 (0.9-3.2) K/mm3 [place]irt # (Auto) 0.8 H (0.1-0.6) K/mm3 Eos # (Auto) 0.1 (0-0.3) K/mm3 Baso # (Auto) 0.0 (0.0-0.1) K/mm3 Abs Immat Gran (auto) 0.03 (0.00-0.031) K/mm3 Absolute Neuts (auto) 5.9 (1.3-6.7) K/mm3 Absolute Nucleated RBC 0.000 (0.0-0.012) K/mm3 Nucleated RBC % 0.0 (0.0-0.2) % PT 13.2 (11.1-14.7) Seconds INR 1.0 APTT 31.6 (22.3-36.8) Seconds Sodium 134 L (137-145) mmol/L Potassium 4.3 (3.4-5.0) mmol/L Chloride 102 (98-107) mmol/L Carbon Dioxide 19 L (22-30) mmol/L Anion Gap 13 H (4-12) mmol/L BUN 23 H (7-17) mg/dL Creatinine 1.75 H (0.7-1.0) mg/dL Estim Creat Clear Calc 30 ml/min Estimated GFR 30 L (59 - ) Glucose 111 H (65-110) mg/dL Calcium 9.5 (8.4-10.2) mg/dL Magnesium 1.6 (1.6-2.3) mg/dL Total Bilirubin 0.7 (0.2-1.3) mg/dL AST 28 (14-36) U/L ALT 34 (6-35) U/L Alkaline Phosphatase 157 H (38-126) U/L Total Creatine Kinase 139 H (30-135) U/L Troponin I 0.014 (0.000-0.034) ng/mL Total Protein 8.4 H (6.3-8.2) g/dL Albumin 4.8 (3.5-5.1) g/dL Lipase 75 (23-300) U/L Urine Color Yellow (Yellow) Urine Appearance Clear (Clear) Urine pH 6.0 (5.0-9.0) Ur Specific [place] 1.044 H (1.001-1.035) Urine Protein Negative (Negative) mg/dL Urine Glucose (UA) Negative (Negative) mg/dL Urine Ketones Negative (Negative) mg/dL Ur Blood (Man) Negative (Negative) Urine Nitrate Negative (Negative) Urine Bilirubin Negative (Negative) Urine Urobilinogen 0.2 (<2.0) mg/dL Leukocyte Esterase Rfl Trace H (Negative) JJ/UL Urine RBC 0-2 (0-2) /hpf Urine WBC 11-20 H (0-3) /hpf Ur Squamous Epith Cells None seen (Few) /hpf Urine Bacteria None seen /hpf Urine Casts 0-2 Urine Opiates Screen Negative (Negative) Urine Methadone Screen Negative (Negative) Ur Barbiturates Screen Negative (Negative) Ur Phencyclidine Scrn Negative (Negative) Ur Amphetamine Screen Negative (Negative) U Benzodiazepines Scrn Negative (Negative) Urine Cocaine Screen Negative (Negative) U Cannabinoids Screen Positive A (Negative) Imaging Data Radiologist's impression: IMPRESSION: No acute lung findings.] IMPRESSION: 1. [No thoracic or abdominal aortic aneurysm is evident. There is no dissection.] 2. [No acute abnormality is noted in the chest, abdomen and pelvis.] IMPRESSION: There is a thrombus within the right M1 segment causing focal severe stenosis. Otherwise, no hemodynamically significant stenosis elsewhere. There is generalized atrophy and chronic white matter microangiopathic changes. ECG Data EKG #1: Attestation: I personally reviewed and interpreted this ECG as follows: ECG completion date: 03/04/25 ECG completion time: 21:43 Interpretation: Sinus arrhythmia at a rate of 81 beats per minute. MT interval 151. QRS 93. QT/QTC 369/430. There is some mild R to R variation. Good R-wave progression across the precordial leads. T-wave inversion in 3 but upright in 2 and flat in AVF. No other T-wave inversions in precordial leads. Discharge Plan Discharge Clinical Impression: Microcytic anemia, Elevated ALT measurement, CKD (chronic kidney disease), Headache, Dizziness, Chest pain, Marijuana use Patient Disposition: Still a Patient Condition: Stable Time of Disposition: 00:46
[2025-03-04 23:05] LABS: Creatine Kinase 139 U/L (30-135); Magnesium 1.6 mg/dL (1.6-2.3)
[2025-03-04 23:11] VITALS: BP 190/103; PULSE 101; RESP 16; O2SAT 98
[2025-03-04] MEDS: SODIUM CHLORIDE 0.9% IV 1,000 ML 999 ML IV CONT (23:13)
[2025-03-04] MEDS: ACETAMINOPHEN 500 MG TABLET 1000 MG PO (23:14)
[2025-03-04 23:23] LABS: Cannabinoid Screen Urine Positive (Negative)
[2025-03-04] MEDS: diazePAM INJ (*CRX) 10 MG/2 ML SYRINGE 2.5 MG IV PUSH (23:45)
[2025-03-05] VITALS (10 sets, daily range): BP systolic 151–179; BP diastolic 86–98; PULSE 62–104; RESP 15–16; TEMP 36.4–36.8; O2SAT 96–99; BMI 29.5
[2025-03-05 01:04] LABS: Add Urine Microscopic? YES; Appearance Urine Clear (Clear); Glucose Urine UA Negative (Negative); Leukocyte Esterase Ur Trace LEU/UL (Negative); Nitrate Urine Negative (Negative); Non Pathogenic Casts 0-2; Specific Grav Ur 1.044 (1.001-1.035)
--- NOTE | 2025-03-05 01:44 | WPCEDHO ---
ED Hand Off Checklist All vitals saved: IV Site documented: All med administrations documented: Triage Note Triage Note Patient brought in by EMS [place] 03/04/25 21:15 City from home with complaints of high blood pressure, jaw and neck pain, also has headache 258/146 by EMS NSR 5mg hydralazine-after on arrival BGL 111 Headache got better after Hydralazine. Patient is anxious due to brother passing last year RT elevated BP/Aneurysm. Patient does still complain of dizziness. Patient reporting Anxiety/ depression-weight gain. History of Stage 3 Kidney disease Allergies bupropion (From Wellbutrin) Allergy (Severe, Verified 06/21/24 14:34) Seizure levetiracetam (From Keppra) Adverse Reaction (Intermediate, Verified 06/21/24 14:34) Confusion pt told by family she was acting very strange after taking med but pt has little memory of the event prazosin Adverse Reaction (Intermediate, Verified 06/21/24 14:34) Other heart palpitations Family History (Last Updated 05/20/24 @ 10:51 by Hermilo Vivar MA) Mother Pancreatitis, recurrent Hypertension Alzheimer's disease with early onset Father Hypertension Chronic kidney disease (CKD) Sibling Cerebrovascular accident Administered/Completed Medications Discontinued Medications Acetaminophen (Acetaminophen 500 Mg Tablet) 1,000 mg PO ONCE STA Stop: 03/04/25 23:02 Last Admin: 03/04/25 23:14 Dose: 1,000 mg Documented By: JOANNE Diazepam (Diazepam Inj (*Crx) 10 Mg/2 Ml Syringe) 2.5 mg IV PUSH ONCE ONE Stop: 03/04/25 23:36 Last Admin: 03/04/25 23:45 Dose: 2.5 mg Documented By: JOANNE Sodium Chloride (Normal Saline Iv) 1,000 mls @ 999 mls/hr IV CONT .Q1H1M STA Stop: 03/05/25 00:00 Last Admin: 03/04/25 23:13 Dose: 999 mls/hr Documented By: JOANNE Labetalol HCl (Labetalol Hcl Inj 100 Mg/20 Ml Vial) 10 mg IV PUSH ONCE ONE Stop: 03/04/25 22:37 Last Admin: 03/04/25 23:13 Dose: 10 mg Documented By: JOANNE Interventions/Assessments Cardiac Monitoring Start: 03/04/25 20:54 Freq: Status: Active Protocol: Document 03/04/25 21:26 KKR (Rec: 03/04/25 21:27 KKR [id number]) Dairy Worker Assessment Dairy Worker 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 Applied Pulse Rate (60-100) 96 EKG Rythm Sinus Tachycardia IV / Saline Lock, Insert Start: 03/04/25 21:37 Freq: STAT Status: Active Protocol: Document 03/04/25 23:10 EZG (Rec: 03/04/25 23:10 EZG [id number]) IV Assessment Peripheral Access Left Antecubital IV Catheter Access Initiated IV Insertion Date 03/04/25 IV Insertion Time 23:10 Catheter Gauge 20 IV Site Assessment WNL,Bruised IV Care and WNL Maintenance Peripheral Access Right Hand IV Catheter Access Discontinued Access PA: Cardiovascular Assessment Start: 03/04/25 20:54 Freq: Status: Active Protocol: Document 03/04/25 21:27 KKR (Rec: 03/04/25 21:28 KKR [id number]) Cardiovascular Assessment Cardiovascular Chest Pressure,Dizziness Symptoms Skin Description Normal Color Jugular Vein None Distention PA: Respiratory Assessment Start: 03/04/25 20:54 Freq: Status: Active Protocol: Document 03/04/25 21:27 KKR (Rec: 03/04/25 21:28 KKR [id number]) Respiratory Assessment Effort Normal Pattern Regular Chest Expansion Symmetrical Adult Capillary Normal/Less than 2 Seconds Refill Oxygen Delivery Oxygen Delivery Room Air Pulse Oximetry (90- 99 100) Last Vital Signs Temperature 98.2 F 03/04/25 21:15 Pulse Rate 82 03/05/25 01:39 Respiratory Rate 16 03/05/25 01:39 Pulse Oximetry 99 03/05/25 01:39 Blood Pressure 170/97 H 03/05/25 01:39 Blood Pressure Mean 121 03/05/25 01:39 Blood Pressure Position Sitting 03/05/25 01:39 Oxygen Delivery Room Air 03/04/25 21:27 Weight 73.8 kg 03/04/25 21:15 Last Result - Abnormals Only Hgb 11.9 g/dL (12.0-15.0) L 03/04/25 21:39 Hct 36.4 % (37.0-47.0) L 03/04/25 21:39 MCV 79.6 fl (80-100) L 03/04/25 21:39 RDW 15.0 % (11.5-14.5) H 03/04/25 21:39 [place] # (Auto) 0.8 K/mm3 (0.1-0.6) H 03/04/25 21:39 Sodium 134 mmol/L (137-145) L 03/04/25 21:39 Carbon Dioxide 19 mmol/L (22-30) L 03/04/25 21:39 Anion Gap 13 mmol/L (4-12) H 03/04/25 21:39 BUN 23 mg/dL (7-17) H 03/04/25 21:39 Creatinine 1.75 mg/dL (0.7-1.0) H 03/04/25 21:39 Estimated GFR 30 (59-) L 03/04/25 21:39 Glucose 111 mg/dL (65-110) H 03/04/25 21:39 Alkaline Phosphatase 157 U/L (38-126) H 03/04/25 21:39 Total Creatine Kinase 139 U/L (30-135) H 03/04/25 21:39 Total Protein 8.4 g/dL (6.3-8.2) H 03/04/25 21:39 Ur Specific [place] 1.044 (1.001-1.035) H 03/05/25 00:45 Leukocyte Esterase Rfl Trace JJ/UL (Negative) H 03/05/25 00:45 Urine WBC 11-20 /hpf (0-3) H 03/05/25 00:45 U Cannabinoids Screen Positive (Negative) A 03/04/25 22:58 Most Recent Suicide Severity Rating Suicide Severity Rating NO RISK INDICATED 03/04/25 21:15
--- NOTE | 2025-03-05 01:48 | ECG_ITS ---
Test Date: 2025-03-05 01:54:27 Measurements Intervals [place] Rate: 75 P: 17 FL: 153 QRS: 2 QRSD: 93 T: 15 QT: 403 QTc: 451 Interpretive Statements SINUS RHYTHM LEFT VENTRICULAR HYPERTROPHY WITH ST-T CHANGES Compared to ECG 03/04/2025 21:43:47 ST (T wave) deviation now present Sinus arrhythmia no longer present Electronically Signed On 03-05-2025 12:27:15 BULLET CHARGING MACHINE OPERATOR by Valerio Ruiz M.D.
[2025-03-05 02:11] LABS: Troponin I 0.013 ng/mL (0.000-0.034)
--- NOTE | 2025-03-05 02:29 | ADMGEN ---
This patient, Shanda Shearer, was admitted to IMU Room 213-01. Patient/family oriented to hospital policies and general routines including ID bracelet, bed and alarms, visiting hours, pain management, procedures, bathroom and other care routines, personal items, smoking policy, room service/diet, and visiting hours. Information on how to activate the Rapid Response Team has been discussed. Patient/Family are encouraged to report perceived risks to care and to ask questions if they do not understand what they are told or what they should do.
[2025-03-05] MEDS: LORazepam (*CRX) 0.5 MG TABLET PO ×2 (05:34→13:19)
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
[2025-03-05] MEDS: PROPRANOLOL HCL 20 MG TABLET PO (08:50)
[2025-03-05] MEDS: LOSARTAN POTASSIUM 100 MG TABLET PO (08:50)
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
== END 2025-03-05 15:00 | disposition home or self-care (01) ==
LOC: ANHED 03-05 00:46 → ANHIMU 03-05 01:30
PROVIDERS: Emergency Medicine; Admitting Provider General Practice; Emergency Provider Student in an Organized Health Care Education/Training Program; PCP Nurse Practitioner Family; Visit Provider Student in an Organized Health Care Education/Training Program
DX: F41.9 Anxiety disorder, unspecified (principal); I16.0 Hypertensive urgency; I66.9 Occlusion and stenosis of unspecified cerebral artery; F31.9 Bipolar disorder, unspecified; F43.10 Post-traumatic stress disorder, unspecified; I12.9 Hypertensive chronic kidney disease with stage 1 through stage 4 chronic kidney disease, or unspecified chronic kidney disease; N18.30 Chronic kidney disease, stage 3 unspecified; R82.90 Unspecified abnormal findings in urine; F12.90 Cannabis use, unspecified, uncomplicated; K21.9 Gastro-esophageal reflux disease without esophagitis; G40.909 Epilepsy, unspecified, not intractable, without status epilepticus; Z98.84 Bariatric surgery status; Z82.49 Family history of ischemic heart disease and other diseases of the circulatory system; Z84.19 Family history of other disorders of kidney and ureter; Z82.3 Family history of stroke
CPT/HCPCS: 36415; 70496; 70498; 70553; 71046; 71275; 74174; 80053; 80307; 81001; 82550; 83690; 83735; 84484; 85025; 85610; 85730; 87086; 93005; 96361; 96374; 96375; 99285; A9270; A9577; G0378; J3360; J7030; Q9967